=== PATIENT | female | born 1940 | race Caucasian/White ===

== ENCOUNTER → 2017-06-11 | Outpatient (CLI) | payer MEDICARE, OTHER ==
[~2017-06-11] MED LIST: /AMLO25TA; AMLO10TAB; ASPI325T; CALCCHW12; CARD2TAB; COZA100T; HYDR25TA6; METO25TA2; OXYB5TAB4; POTA10CA; PRIL20CA; TOPR25TA; [UNRECOGNIZED DRUG - CODE]
--- NOTE | 2017-06-11 14:50 | REPMRS ---
Patient History The patient states she had a clinical breast exam in February 2017. Patient is postmenopausal. Family history of breast cancer in mother at age 53, breast cancer in maternal cousin at age 50, and breast cancer in maternal cousin at age 70. Benign lumpectomy of the right breast, 1961. Digital Mammo Screening Bilat: June 11, 2017 - Exam #: [id number] Bilateral CC and MLO view(s) were taken. Technologist: Shani Walker, Technologist Prior study comparison: June 05, 2016, bilateral digital mammo screening bilat performed at [facility]. June 04, 2015, bilateral digital mammo screening bilat performed at [facility]. June 02, 2014, bilateral bilat screen digital mammo, performed at [facility] ([facility]). May 27, 2013, bilateral bilat screen digital mammo, performed at [facility] ([facility]). April 25, 2012, bilateral bilat screen digital mammo, performed at [facility] ([facility]). April 11, 2011, bilateral screening mammogram, performed at [facility] ([facility]). April 04, 2010, bilateral screening mammogram, performed at [facility] ([facility]). FINDINGS: There are scattered fibroglandular densities. There has been no change in the appearance of the mammogram from the prior studies. There is a mild amount of residual fibroglandular tissue which is fairly symmetric. There is no interval development of dominant mass, architectural distortion, or clustered microcalcification suggestive of malignancy. Stable 6mm well defined nodule in the right breast at 11o'clock in periareolar region without change from all priors and further back to '08 exxam consistent with benign finding. There are scattered, small, benign calcifications of doubtful clinical significance. There are benign arterial calcifications noted. No significant changes when compared with prior studies. ASSESSMENT: BI-RADS/ACR category 2 mammogram. Benign finding(s). Recommendation Routine screening mammogram in 1 year (for women over age 40). This mammogram was interpreted with the aid of an FDA-approved computer-aided dectection system. A. Negative x-ray reports should not delay biopsy if a dominant or clinically suspicious mass is present. B. Four to eight percent of cancers are not identified by mammography. C. Adenosis and dense breast may obscure an underlying neoplasm. Electronically Signed By: Andrews Morelos MD 06/11/17 [id number]
== END ==
LOC: M RAD 09:14
PROVIDERS: ATTEND Family Medicine
DX: Z12.31 Encounter for screening mammogram for malignant neoplasm of breast (principal)

== ENCOUNTER → 2017-08-02 | Outpatient (REF) | payer MEDICARE, OTHER | LOC: M LAB REF 16:37 | PROVIDERS: ATTEND Nurse Practitioner Women's Health | DX: N32.81 Overactive bladder (principal); Z79.899 Other long term (current) drug therapy ==

== ENCOUNTER → 2018-06-21 | Outpatient (CLI) | payer MEDICARE, OTHER | LOC: M RAD 10:26 | DX: Z12.31 Encounter for screening mammogram for malignant neoplasm of breast (principal) | CPT/HCPCS: 77067 ==

== ENCOUNTER 2021-04-04 12:10 | Inpatient (IN) | payer MEDICARE, OTHER ==
[~2021-04-04] VITALS: Ht 157.5 cm; Wt 61.2 kg
[~2021-04-04 12:10] MED LIST changes: -/AMLO25TA; +METO-1; +NORV2TAB; -TOPR25TA
[2021-04-04] MEDS ORDERED: BENZONATATE 100 MG CAP PO PRN (14:10)
[2021-04-04] MEDS ORDERED: BISACODYL 10 MG SUPP PR PRN (14:10)
[2021-04-04] MEDS: REMEDY PHYTOPLEX Z-GUARD PASTE 113GM TUBE (FROM STOREROOM PRODUCT) TOP SCH ×2 (16:00→20:39)
[2021-04-04 17:10] VITALS: BP 171/79
[2021-04-04] MEDS ORDERED: POTA1TAB14 PO (17:57)
[2021-04-04] MEDS ORDERED: B-COTAB10 PO (17:57)
[2021-04-04] MEDS ORDERED: GABA-283 PO (17:57)
[2021-04-04] MEDS ORDERED: TUSSLIQ PO (17:57)
[2021-04-04] MEDS ORDERED: SENN1TAB94 PO (17:57)
[2021-04-04] MEDS ORDERED: OXYC-517 PO (17:57)
[2021-04-04] MEDS ORDERED: CETI-24 PO (17:57)
[2021-04-04] MEDS ORDERED: FLUTISP NARES (17:57)
[2021-04-04] MEDS ORDERED: D-10TAB3 PO (17:57)
[2021-04-04] MEDS ORDERED: SYST1SOL4 OU (17:57)
[2021-04-04] MEDS ORDERED: AMLO1TAB25 PO (17:57)
[2021-04-04] MEDS ORDERED: CENT1TAB PO (17:57)
[2021-04-04] MEDS ORDERED: FISH1000 PO (17:57)
[2021-04-04] MEDS ORDERED: LOSA100T50 PO (17:57)
[2021-04-04] MEDS ORDERED: MAGN400T3 PO (17:57)
[2021-04-04] MEDS ORDERED: DITR5TAB PO (17:57)
[2021-04-04] MEDS ORDERED: CALA180T PO (17:57)
[2021-04-04] MEDS ORDERED: ASPI81TA27 PO (17:57)
[2021-04-04] MEDS ORDERED: HYDR-3490 PO (17:57)
[2021-04-04] MEDS ORDERED: OMEP-218 PO (17:57)
[2021-04-04] MEDS ORDERED: HYDR5LIQ2 PO (17:59)
[2021-04-04] MEDS: GABAPENTIN 400MG CAP PO SCH ×2 (18:21→20:38)
[2021-04-04] MEDS: ACETAMINOPHEN 500 MG TAB PO SCH ×2 (18:22→21:58)
[2021-04-04 20:15] VITALS: BP 123/60
[2021-04-04] MEDS: POLYVINYL ALCOHOL OPHTH SOLN 15 ML(LIQUITEARS) OU SCH (20:36)
[2021-04-04] MEDS: FLUTICASONE PROP 0.05% NASAL SPRAY 16 GM (FLONASE) NARES SCH (20:36)
[2021-04-04] MEDS: ASPIRIN 81MG ENTERIC TABLET PO SCH (20:37)
[2021-04-04] MEDS: VERAPAMIL 180MG EXTENDED RELEASE TABLET PO SCH (20:37)
[2021-04-04] MEDS: DOCUSATE SODIUM 100MG CAPSULE PO SCH (20:38)
[2021-04-04] MEDS: SENNA 8.6 MG TAB (SENOKOT) PO SCH (21:00)
[2021-04-04] MEDS: oxyCODONE 5MG TAB PO PRN (21:59)
[2021-04-05 05:00] VITALS: BP 137/63
[2021-04-05 07:09] LABS: BASO # 0.1 10^3/uL (0.0-0.2); BASO % 0.6 % (0.0-1.0); EOS # 0.5 10^3/uL (0.0-0.5); EOS % 4.3 % (0.0-3.0); HEMATOCRIT 29.9 % (36.0-47.0); HEMOGLOBIN 9.9 g/dl (12.0-15.5); LYMPH # 0.8 10^3/uL (1.5-5.0); LYMPH % 6.1 % (24.0-44.0); MEAN CORPUSCULAR HEMOGLOBIN 33.4 pg (27.0-33.0); MEAN CORPUSCULAR HGB CONC 33.1 g/dl (32.0-36.5); MONO # 1.1 10^3/uL (0.0-0.8); MONO % 8.4 % (2.0-8.0); NEUTROPHILS # 10.1 10^3/uL (1.5-8.5); NEUTROPHILS % 79.9 % (36.0-66.0); PLATELET COUNT, AUTOMATED 317 10^3/uL (150-450); RED BLOOD COUNT 2.96 10^6/uL (4.00-5.40); WHITE BLOOD COUNT 12.7 10^3/uL (4.0-10.0)
[2021-04-05 07:39] LABS: ALBUMIN 2.5 GM/DL (3.2-5.2); ALT/SGPT 8 U/L (12-78); BILIRUBIN,TOTAL 0.5 MG/DL (0.2-1.0); BLOOD UREA NITROGEN 12 MG/DL (7-18); CALCIUM LEVEL 8.6 MG/DL (8.8-10.2); CARBON DIOXIDE LEVEL 30 MEQ/L (21-32); CHLORIDE LEVEL 106 MEQ/L (98-107); CREATININE FOR GFR 0.51 MG/DL (0.55-1.30); GLOMERULAR FILTRATION RATE > 60.0 (>32); GLUCOSE, FASTING 85 MG/DL (70-100); POTASSIUM SERUM 3.6 MEQ/L (3.5-5.1); SODIUM LEVEL 143 MEQ/L (136-145); TOTAL PROTEIN 5.9 GM/DL (6.4-8.2)
[2021-04-05] MEDS: VITAMIN D 1,000 INTERNATIONAL UNITS TABLET PO SCH (08:26)
[2021-04-05] MEDS: MULTIVITAMINS/MINERALS THERAP 1 TAB PO SCH (08:26)
[2021-04-05] MEDS: VITAMIN B COMPLEX/VIT C CAP PO SCH (08:26)
[2021-04-05] MEDS: DOCUSATE SODIUM 100MG CAPSULE PO SCH ×2 (08:26→20:56)
[2021-04-05] MEDS: OMEPRAZOLE 20 MG CAP PO SCH (08:26)
[2021-04-05] MEDS: CETIRIZINE (ZyrTEC) 10 MG TAB PO SCH (08:27)
[2021-04-05] MEDS: ASPIRIN 81MG ENTERIC TABLET PO SCH ×2 (08:27→20:55)
[2021-04-05] MEDS: POTASSIUM CHLORIDE 10 MEQ SR TABLET PO SCH (08:27)
[2021-04-05] MEDS: GABAPENTIN 400MG CAP PO SCH ×3 (08:27→20:56)
[2021-04-05] MEDS: MAGNESIUM OXIDE 400MG TAB (MAG-OX) PO SCH (08:27)
[2021-04-05] MEDS: ACETAMINOPHEN 500 MG TAB PO SCH ×3 (08:28→20:56)
[2021-04-05] MEDS: FLUTICASONE PROP 0.05% NASAL SPRAY 16 GM (FLONASE) NARES SCH ×2 (08:29→20:57)
[2021-04-05] MEDS: POLYVINYL ALCOHOL OPHTH SOLN 15 ML(LIQUITEARS) OU SCH ×3 (08:29→20:57)
[2021-04-05] MEDS: REMEDY PHYTOPLEX Z-GUARD PASTE 113GM TUBE (FROM STOREROOM PRODUCT) TOP SCH ×3 (08:30→20:57)
[2021-04-05] MEDS: LOSARTAN 50MG TABLET PO SCH (08:30)
[2021-04-05] MEDS: oxyCODONE 5MG TAB PO PRN ×3 (08:37→22:19)
[2021-04-05] MEDS ORDERED: oxyBUTYnin *DITROPAN XL* 5 MG TABCR PO SCH (09:00)
--- NOTE | 2021-04-05 10:43 | HPEPDOC ---
[employer] Note DATE OF ADMISSION: 04-04-21 DATE OF SERVICE: 04-05-21 TIME OF ADMISSION: Please refer to physician's admission order. SOURCE OF ADMISSION INFORMATION: [facility] record and patient CHIEF COMPLAINT: right TKR HISTORY OF PRESENT ILLNESS: 80F pmh CAD, sick sinus syndrome with PM, MAXIMILIANO on CPAP, HTN, HLD, Anxiety, Cervical stenosis, dysphagia due to esophageal strictures, overactive bladder, PVD, primary right knee OA who [facility] for TKR in setting of OA and frequent dislocations. She was evaluated by card iology and cleared for surgery which was performed by Dr. Almonte on 04-01-21. She had post-op LE swelling and pain for which Doppler study was performed on 04-01-21 showing no DVT. Additionally she pain with post-op anemia with a Hgb of 9.8 on 04/04/21 and leukocytosis with wbc of 17.6 with low grade temp. Therapy evaluated her and found her to have considerable mobility and ADL impairments and she was deemed medically appropriate for discharge to ARU on 04-04-21. REVIEW OF SYSTEMS: The following is a completed review of systems and has been reviewed. Review of systems otherwise unremarkable. PAIN: Patient self reports right knee pain and shoulder pain EYES: No recent vision changes. EARS, NOSE, & THROAT: +dysphagia (mild, chronic) CARDIOVASCULAR: Denies chest pain or palpitations PULMONARY: Denies shortness of breath GASTROINTESTINAL: Denies constipation/diarrhea GENITOURINARY: denies dysuria MUSCULOSKELETAL: s/p right knee TKR NEUROLOGICAL:denies paresthesias HEMATOLOGICAL: +anemia SKIN: right knee incision PSYCHIATRIC: Unremarkable All other review of systems found to be negative. PAST MEDICAL HISTORY: as per HPI PAST SURGICAL HISTORY: Breast cyst excision, D&C x2, esophageal dilatation, RTC repair, bilat THR, colonoscopy ALLERGIES: Please see below. MEDICATIONS: Please see below. FAMILY HISTORY: Cancer, suicide, malignant hyperthermia SOCIAL HISTORY: No smoking/etoh/illicit drugs DIET: 2 g low sodium, fluid restrict PHYSICAL EXAMINATION: VITAL SIGNS: Please see below. GENERAL: Pleasant and cooperative. No acute distress. HEENT: PERRL. Extraocular movements intact. Clear conjunctiva CARDIOVASCULAR: Regular rate and rhythm. No murmurs, rubs, or gallops LUNGS: Clear to auscultation bilaterally. No wheezes. No rhonchi ABDOMEN: Soft, nontender, nondistended. Positive bowel sounds. Normal active bowel sounds NEUROLOGICAL: Alert and oriented times three. Cranial nerves II through XII grossly intact. Sensation grossly intact all 4 limbs EXTREMITIES: 5\5 strength bilateral upper extremities. 5\5 strength right ankle DF/EHL, PF >3/5 hip flexion (limited due to recent surgery) . 5/5 strength in left lower extremity. SKIN: knee incision with dressing, mild incision erythema and swelling -no sacral wounds or pressure ulcers noted underneath brace +Renata's bilat LABORATORY DATA: Please see below. IMAGING: Imaging documentation personally reviewed by record FUNCTIONAL STATUS: Premorbid: Modified Independent with all activities of daily life as well as mobility On Admission: Contact guard-Min assist for bed mobility, dressing, toileting GOALS: Mod-I for bed mobility, functional transfers, toileting, ambulation, dressing, bathing ASSESSMENT:80-year-old F with past medical history of CAD with sick sinus syndrome s/p PM, HTN, primary right knee OA who presents status post right TKR PLAN: 1. Rehab- PT/OT advance mobility and ADLs, strengthen/stretch/maintain ROM all 4 limbs 2. Ortho- s/p right TKR on 04-01-21, WBAT with knee immobilizer (should remain on at all times per ortho recs, however should be removed daily for skin checks), will monitor wbc/esr/crp, on ASa 81mg BID for DVT ppx -f/u Dr. Almonte -hx of cervical stenosis, monitor for neck pain, bladder/bowel symptoms, or worsening weakness. 3. Cardiac- hx of CAD on ASA and statin -sick sinus syndrome with dual chamber PM c/u verapamil -CHF on hydrochlorothiazide (+potassium supplements), fluid restrict, daily weights -HTN- c/u Losartan and norvasc -medicine consulted to assist in overall management 4. Resp- hx of MAXIMILIANO on cpap -monitor for infection, incentive spirometer 5. 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 GI ppx- prilosec 7. DVT ppx- on ASA 81mg BID 8. - OAB on oxybutynin 9. Pain- tylneol, oxycodone, gabapentin 10. Dispo TBD POST ADMISSION PHYSICIAN EVALUATION: Medical and functional status: Description of medical status, medical assessment: As above. Rehabilitation diagnosis and current and prior cold morbid medical conditions as above. Risk of complications and plans to mitigate them as above. Description of functional status current status is as above. Prior status as above. Status compared to preadmission: There are no clinically significant differences between the patient's current status and the information described on the preadmission screening document. Treatment plan anticipated: Treatment plan is as described above. Required disciplines including physical therapy, occupational therapy, others as noted above Intensity of services: 3 hours a day, 6 days a week. Special considerations: There are no specific special or safety considerations that would likely preclude immediate implementation of an intensive rehabilita tion program or subsequently influence the plan of care ATTESTATION: Considering all the information above, it is my best judgment that this patient requires intensive rehabilitation therapy as described above and an inpatient hospital environment due to the complexity of nursing, medical, and rehabilitation needs required by the patient. Furthermore, this patient can reasonably be expected to participate in an benefit from an inpatient rehabilitation stay with an interdisciplinary team approach to the delivery of rehabilitation care under the direction and supervision of rehabilitation physi johan PROGNOSIS: good ESTIMATED LENGTH OF STAY:10-12 days. PROJECTED DISCHARGE DESTINATION: Home with family support and any durable medical equipment required to increase functional safety and mobility. TIME SPENT COUNSELING AND COORDINATING INITIAL CARE: Greater than 70 minutes. Vital Signs Vital Sign - Last 24 Hours 04/04/21 04/04/21 04/04/21 04/04/21 17:10 20:15 20:37 21:59 Temp 97.9 97.9 Pulse 72 67 67 Resp 20 18 18 B/P (MAP) 171/79 (109) 123/60 (81) 123/60 Pulse Ox 96 97 O2 Delivery Room Air Room Air 04/04/21 04/05/21 04/05/21 04/05/21 22:29 05:00 08:29 08:37 Temp 97.8 97.8 Pulse 63 68 63 Resp 18 18 18 B/P (MAP) 137/63 (87) 135/60 137/63 Pulse Ox 97 O2 Delivery Room Air Room Air 04/05/21 09:10 Resp 18 O2 Delivery Room Air Laboratory Data CBC/BMP Laboratory Tests 04/05/21 06:40 Labs 24H Laboratory Tests 2 04/05/21 06:40: Immature Granulocyte % (Auto) 0.7, Neutrophils (%) (Auto) 79.9H, Lymphocytes (%) (Auto) 6.1L, Monocytes (%) (Auto) 8.4H, Eosinophils (%) (Auto) 4.3H, Basophils (%) (Auto) 0.6, Neutrophils # (Auto) 10.1H, Lymphocytes # (Auto) 0.8L, Monocytes # (Auto) 1.1H, Eosinophils # (Auto) 0.5, Basophils # (Auto) 0.1, Nucleated Red Blood Cells % (auto) 0.0, Anion Gap 7L, Glomerular Filtration Rate > 60.0, Calcium Level 8.6L, Total Bilirubin 0.5, Aspartate Amino Transf (AST/SGOT) 11, Alanine Aminotransferase (ALT/SGPT) 8L, Alkaline Phosphatase 97, Total Protein 5.9L, Albumin 2.5L, Albumin/Globulin Ratio 0.7L Home Medications Scheduled Amlodipine Besylate (Amlodipine Besylate) 10 Mg Tablet, 10 MG PO DAILY, (Reported) Aspirin (Aspirin EC) 81 Mg Tablet.dr, 81 MG PO BID, (Reported) Cetirizine HCl (Cetirizine HCl) 10 Mg Tablet, 10 MG PO DAILY, (Reported) Cholecalciferol (Vitamin D3) (Vitamin D3) 25 Mcg Tablet, 25 MCG PO DAILY, (Reported) Fluticasone Propionate (Fluticasone Propionate) 16 Gm Tasley.susp, 2 SPRAY NARES BID, (Reported) Gabapentin (Gabapentin) 400 Mg Capsule, 400 MG PO TID, (Reported) Hydrochlorothiazide (Hydrochlorothiazide) 25 Mg Tablet, 25 MG PO DAILY, (Reported) Losartan Potassium (Losartan Potassium) 100 Mg Tablet, 100 MG PO DAILY, (Reported) Magnesium Oxide (Magnesium Oxide) 400 Mg Tablet, 800 MG PO DAILY, (Reported) Multivit-Min/FA/Lycopen/Lutein (Centrum Silver Tablet) 1 Each Tablet, 1 TAB PO DAILY, (Reported) [place]-3 Fatty Acids/Fish Oil (Fish Oil 1,000 mg Capsule) 1 Each Capsule, 2,000 MG PO BID, (Reported) Omeprazole (Omeprazole) 20 Mg Capsule.dr, 20 MG PO DAILY, (Reported) Oxybutynin Chloride (Ditropan Xl) 5 Mg Tab.er.24, 5 MG PO DAILY, (Reported) Potassium Chloride (Potassium Chloride) 20 Meq Tablet.er, 40 MEQ PO DAILY, (Reported) Sennosides/Docusate Sodium (Senna Plus 8.6-50 mg Tablet) 1 Each Tablet, 2 TAB PO QHS, (Reported) Verapamil HCl (Calan Sr) 180 Mg Tablet.er, 180 MG PO QHS, (Reported) Vitamin B Complex/Folic Acid (B-Complex Tablet) 0.4 Mg Tablet, 1 TAB PO DAILY, (Reported) Scheduled PRN Hydrocodone/Chlorphen P-Stirex (Hydrocodone-Chlorphen ER Susp) 115 Ml Maria R.er.12h, 5 ML PO DAILY PRN for COUGH, (Reported) Oxycodone HCl (Oxycodone HCl) 5 Mg Tablet, 5 MG PO Q4H PRN for PAIN, (Reported) Propylene Glycol/Peg 400/Pf (Systane 0.3-0.4% Eye Drop) 1 Each Droperette, 1 MATTY P OU BID PRN for DRY EYES, (Reported) Allergies Coded Allergies: Sulfa (Sulfonamide Antibiotics) (Unverified Allergy, Unknown, 04/04/21) clarithromycin (Unverified Allergy, Unknown, 04/04/21) etodolac (Unverified Allergy, Unknown, 04/04/21) trimethoprim (Unverified Allergy, Unknown, 04/04/21) A-FIB/CHADSVASC A-FIB History Current/History of A-Fib/PAF?: No Current PO Anticoag Therapy: No SORIN CHILEL MD April 05, 2021 10:43
[2021-04-05 14:00] VITALS: BP 160/65
--- NOTE | 2021-04-05 17:40 | REP ---
INDICATION: immobility s/p TKR COMPARISON: None. TECHNIQUE: Kaur scale and color Doppler evaluation bilateral lower extremities using linear high frequency transducer. FINDINGS: Ultrasound examination of the right and left lower extremity deep venous structures from the common femoral vein to the popliteal vein demonstrates normal compressibility flow and wave patterns in response to respiration and augmentation. There is no evidence for deep venous thrombosis. Complex Lopez's cyst in the right popliteal fossa measures 4.1 x 2.3 x 3.0 cm. IMPRESSION: No evidence for deep venous thrombosis. Lopez's cyst in the right popliteal fossa <Electronically signed by Nilo Gaffney > 04/05/21 [id number]
[2021-04-05 20:01] VITALS: BP 128/68
[2021-04-05] MEDS: VERAPAMIL 180MG EXTENDED RELEASE TABLET PO SCH (20:55)
[2021-04-05] MEDS: SENNA 8.6 MG TAB (SENOKOT) PO SCH (20:56)
[2021-04-06 05:58] VITALS: BP 147/69
[2021-04-06 06:57] LABS: BASO # 0.1 10^3/uL (0.0-0.2); BASO % 0.7 % (0.0-1.0); EOS # 0.6 10^3/uL (0.0-0.5); EOS % 5.6 % (0.0-3.0); HEMATOCRIT 28.5 % (36.0-47.0); HEMOGLOBIN 9.2 g/dl (12.0-15.5); LYMPH # 0.9 10^3/uL (1.5-5.0); LYMPH % 8.6 % (24.0-44.0); MEAN CORPUSCULAR HEMOGLOBIN 32.4 pg (27.0-33.0); MEAN CORPUSCULAR HGB CONC 32.3 g/dl (32.0-36.5); MEAN CORPUSCULAR VOLUME 100.4 fl (80.0-96.0); MONO % 9.2 % (2.0-8.0); NEUTROPHILS # 7.9 10^3/uL (1.5-8.5); PLATELET COUNT, AUTOMATED 333 10^3/uL (150-450); RED BLOOD COUNT 2.84 10^6/uL (4.00-5.40); WHITE BLOOD COUNT 10.5 10^3/uL (4.0-10.0)
[2021-04-06 09:00] VITALS: BP 137/67
[2021-04-06] MEDS: ASPIRIN 81MG ENTERIC TABLET PO SCH ×2 (09:04→20:21)
[2021-04-06] MEDS: DOCUSATE SODIUM 100MG CAPSULE PO SCH ×2 (09:04→20:21)
[2021-04-06] MEDS: MULTIVITAMINS/MINERALS THERAP 1 TAB PO SCH (09:04)
[2021-04-06] MEDS: OMEPRAZOLE 20 MG CAP PO SCH (09:05)
[2021-04-06] MEDS: GABAPENTIN 400MG CAP PO SCH ×3 (09:05→20:21)
[2021-04-06] MEDS: ACETAMINOPHEN 500 MG TAB PO SCH ×3 (09:05→20:21)
[2021-04-06] MEDS: LOSARTAN 50MG TABLET PO SCH (09:05)
[2021-04-06] MEDS: CETIRIZINE (ZyrTEC) 10 MG TAB PO SCH (09:06)
[2021-04-06] MEDS: FLUTICASONE PROP 0.05% NASAL SPRAY 16 GM (FLONASE) NARES SCH ×2 (09:06→20:24)
[2021-04-06] MEDS: POLYVINYL ALCOHOL OPHTH SOLN 15 ML(LIQUITEARS) OU SCH ×3 (09:06→20:24)
[2021-04-06] MEDS: VITAMIN B COMPLEX/VIT C CAP PO SCH (09:06)
[2021-04-06] MEDS: MAGNESIUM OXIDE 400MG TAB (MAG-OX) PO SCH (09:06)
[2021-04-06] MEDS: VITAMIN D 1,000 INTERNATIONAL UNITS TABLET PO SCH (09:06)
[2021-04-06] MEDS: POTASSIUM CHLORIDE 10 MEQ SR TABLET PO SCH (09:06)
[2021-04-06] MEDS: REMEDY PHYTOPLEX Z-GUARD PASTE 113GM TUBE (FROM STOREROOM PRODUCT) TOP SCH ×3 (09:07→20:25)
--- NOTE | 2021-04-06 10:37 | IPNPDOC ---
PM&R Progress Note DATE OF SERVICE: April 06, 2021 High Scaler Progress Note Subjective: Patient reporting she is apprehensive about going home on her own and does not want to have to rely on her daughter to help her. REVIEW OF SYSTEMS: The following is a completed review of systems and has been reviewed. Review of systems otherwise unremarkable. PAIN: Patient self reports right knee pain and shoulder pain EYES: No recent vision changes. EARS, NOSE, & THROAT: +dysphagia (mild, chronic) CARDIOVASCULAR: Denies chest pain or palpitations PULMONARY: Denies shortness of breath GASTROINTESTINAL: Denies constipation/diarrhea GENITOURINARY: denies dysuria MUSCULOSKELETAL: s/p right knee TKR NEUROLOGICAL:denies paresthesias HEMATOLOGICAL: +anemia SKIN: right knee incision PSYCHIATRIC: Unremarkable All other review of systems found to be negative. PHYSICAL EXAMINATION: VITAL SIGNS: Please see below. GENERAL: Pleasant and cooperative. No acute distress. HEENT: PERRL. Extraocular movements intact. Clear conjunctiva CARDIOVASCULAR: Regular rate and rhythm. No murmurs, rubs, or gallops LUNGS: Clear to auscultation bilaterally. No wheezes. No rhonchi ABDOMEN: Soft, nontender, nondistended. Positive bowel sounds. Normal active bowel sounds NEUROLOGICAL: Alert and oriented times three. Cranial nerves II through XII grossly intact. Sensation grossly intact all 4 limbs EXTREMITIES: 5\5 strength bilateral upper extremities. 5\5 strength right ankle DF/EHL, PF >3/5 hip flexion (limited due to recent surgery) . 5/5 strength in left lower extremity. SKIN: knee incision with dressing, mild parth incision erythema and swelling (improved today) -no sacral wounds or pressure ulcers noted underneath brace ASSESSMENT:80-year-old F with past medical history of CAD with sick sinus syndrome s/p PM, HTN, primary right knee OA who presents status post right TKR PLAN: 1. Rehab- PT/OT advance mobility and ADLs, strengthen/stretch/maintain ROM all 4 limbs 2. Ortho- s/p right TKR on 04-01-21, WBAT with knee immobilizer (should remain on at all times per ortho recs and no AROm or PROM until seen by ortho, however should be removed daily for skin checks), will monitor wbc/esr/crp, on ASa 81mg BID for DVT ppx -f/u Dr. Kopko -hx of cervical stenosis, monitor for neck pain, bladder/bowel symptoms, or worsening weakness. 3. Cardiac- hx of CAD on ASA and statin -sick sinus syndrome with dual chamber PM c/u verapamil -CHF on hydrochlorothiazide (+potassium supplements), fluid restrict, daily weights -HTN- c/u Losartan and norvasc -medicine consulted to assist in overall management 4. Resp- hx of MAXIMILIANO on cpap -monitor for infection, incentive spirometer 5. 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 GI ppx- prilosec 7. DVT ppx- on ASA 81mg BID -Doppler negative for DVT, + right bakers cyst 8. - OAB on oxybutynin, patient retaining and requiring IC, will d/c oxybutynin and see if she is able to void 9. Pain- tylneol, oxycodone, gabapentin 10. Dispo TBD Allergies Coded Allergies: Sulfa (Sulfonamide Antibiotics) (Unverified Allergy, Unknown, 04/04/21) clarithromycin (Unverified Allergy, Unknown, 04/04/21) etodolac (Unverified Allergy, Unknown, 04/04/21) trimethoprim (Unverified Allergy, Unknown, 04/04/21) Vital Signs Vital Signs Date Time Temp Pulse Resp B/P (MAP) Pulse Ox O2 Delivery O2 Flow Rate FiO2 04/06/21 09:05 137/67 04/06/21 09:05 67 04/06/21 09:00 18 99 Room Air 04/06/21 05:58 97.8 Laboratory Data CBC/BMP Laboratory Tests 04/06/21 06:23 Labs 24H Laboratory Tests 2 04/06/21 06:23: Immature Granulocyte % (Auto) 0.9, Neutrophils (%) (Auto) 75.0H, Lymphocytes (%) (Auto) 8.6L, Monocytes (%) (Auto) 9.2H, Eosinophils (%) (Auto) 5.6H, Basophils (%) (Auto) 0.7, Neutrophils # (Auto) 7.9, Lymphocytes # (Auto) 0.9L, Monocytes # (Auto) 1.0H, Eosinophils # (Auto) 0.6H, Basophils # (Auto) 0.1, Nucleated Red Blood Cells % (auto) 0.0, C-Reactive Protein, Quantitative 9.23H Current Medications Current Medications Current Medications Medications (Trade) Dose Ordered Sig/Callie Route PRN Reason Start Time Stop Time Status Last Admin Dose Admin Acetaminophen (Tylenol Tab) 1,000 mg TID PO 04/04/21 16:00 04/06/21 09:05 Amlodipine Besylate (Norvasc) 10 mg DAILY PO 04/05/21 09:00 04/06/21 09:05 Artificial Tears (Akwa Tears) 2 drop TID OU 04/04/21 21:00 04/06/21 09:06 Aspirin (Ecotrin) 81 mg BID PO 04/04/21 21:00 04/06/21 09:04 Benzonatate (Tessalon Perles) 100 mg TIDP PRN PO COUGH 04/04/21 14:10 Bisacodyl (Dulcolax Suppository) 10 mg DAILYPRN PRN [place] CONSTIPATION 04/04/21 14:10 Cetirizine HCl (ZyrTEC) 10 mg DAILY PO 04/05/21 09:00 04/06/21 09:06 Docusate Sodium (Colace) 100 mg BID PO 04/04/21 21:00 04/06/21 09:04 Fluticasone Propionate (Flonase 0.05% Nasal Jadwin) 1 spray BID NARES 04/04/21 21:00 04/06/21 09:06 Gabapentin (Neurontin) 400 mg TID PO 04/04/21 16:00 04/06/21 09:05 Home Med (Med Rec Complete!) ASDIRECTED XX 04/04/21 18:20 04/04/21 18:21 DC Hydrochlorothiazide (Hydrodiuril) 25 mg DAILY PO 04/05/21 09:00 04/06/21 09:06 Losartan Potassium (Cozaar) 100 mg DAILY PO 04/05/21 09:00 04/06/21 09:05 Magnesium Oxide (Mag-Ox) 800 mg DAILY PO 04/05/21 09:00 04/06/21 09:06 Multivitamins (Theragram-M) 1 tab DAILY PO 04/05/21 09:00 04/06/21 09:04 Omeprazole (PriLOSEC) 40 mg DAILY PO 04/05/21 09:00 04/06/21 09:05 Oxybutynin Chloride (Ditropan Xl) 5 mg DAILY PO 04/05/21 09:00 04/06/21 09:17 DC 04/05/21 08:27 Oxycodone HCl (Roxicodone, Oxyir) 5 mg Q4HP PRN PO PAIN 04/04/21 21:30 04/05/21 22:19 Polyethylene Glycol (Miralax) 1 pkt DAILY PRN PO CONSTIPATION 04/04/21 14:10 Potassium Chloride (Micro-K Extencaps) 40 meq DAILY PO 04/05/21 09:00 04/06/21 09:06 Senna (Senokot) 1 tab QHS PO 04/04/21 21:00 04/05/21 20:56 Verapamil HCl (Calan Sr) 180 mg QHS PO 04/04/21 21:00 04/05/21 20:55 Vitamin B Complex/ Vitamin C (Therapeutic B Complex w/C) 1 cap DAILY PO 04/05/21 09:00 04/06/21 09:06 Vitamin D (Vitamin D) 1,000 units QAM PO 04/05/21 09:00 04/06/21 09:06 SORIN CHILEL MD April 06, 2021 10:37
[2021-04-06] MEDS: oxyCODONE 5MG TAB PO PRN ×2 (13:39→20:21)
[2021-04-06 14:00] VITALS: BP 112/86
[2021-04-06 20:00] VITALS: BP 129/58
[2021-04-06] MEDS: SENNA 8.6 MG TAB (SENOKOT) PO SCH (20:21)
[2021-04-06] MEDS: VERAPAMIL 180MG EXTENDED RELEASE TABLET PO SCH (20:22)
[2021-04-07 05:13] VITALS: BP 161/74
[2021-04-07] MEDS: oxyCODONE 5MG TAB PO PRN ×3 (06:27→20:10)
[2021-04-07] MEDS: OMEPRAZOLE 20 MG CAP PO SCH (07:20)
[2021-04-07] MEDS: POTASSIUM CHLORIDE 10 MEQ SR TABLET PO SCH (07:21)
[2021-04-07] MEDS: DOCUSATE SODIUM 100MG CAPSULE PO SCH ×2 (07:21→20:09)
[2021-04-07] MEDS: MULTIVITAMINS/MINERALS THERAP 1 TAB PO SCH (07:21)
[2021-04-07] MEDS: ACETAMINOPHEN 500 MG TAB PO SCH ×3 (07:22→20:11)
[2021-04-07] MEDS: LOSARTAN 50MG TABLET PO SCH (07:22)
[2021-04-07] MEDS: VITAMIN B COMPLEX/VIT C CAP PO SCH (07:23)
[2021-04-07] MEDS: CETIRIZINE (ZyrTEC) 10 MG TAB PO SCH (07:23)
[2021-04-07] MEDS: MAGNESIUM OXIDE 400MG TAB (MAG-OX) PO SCH (07:23)
[2021-04-07] MEDS: GABAPENTIN 400MG CAP PO SCH ×3 (07:23→20:09)
[2021-04-07] MEDS: VITAMIN D 1,000 INTERNATIONAL UNITS TABLET PO SCH (07:23)
[2021-04-07] MEDS: POLYVINYL ALCOHOL OPHTH SOLN 15 ML(LIQUITEARS) OU SCH ×3 (07:23→20:11)
[2021-04-07] MEDS: ASPIRIN 81MG ENTERIC TABLET PO SCH ×2 (07:23→20:09)
[2021-04-07] MEDS: REMEDY PHYTOPLEX Z-GUARD PASTE 113GM TUBE (FROM STOREROOM PRODUCT) TOP SCH ×3 (07:23→20:11)
[2021-04-07] MEDS: FLUTICASONE PROP 0.05% NASAL SPRAY 16 GM (FLONASE) NARES SCH ×2 (07:23→20:11)
--- NOTE | 2021-04-07 09:47 | IPNPDOC ---
PM&R Progress Note DATE OF SERVICE: April 07, 2021 [employer]olstery [employer] Progress Note Subjective: Patient reporting she had more ease climbing stairs and feels more confident that she will be able to go home from ARU. REVIEW OF SYSTEMS: The following is a completed review of systems and has been reviewed. Review of systems otherwise unremarkable. PAIN: Patient self reports right knee pain and shoulder pain EYES: No recent vision changes. EARS, NOSE, & THROAT: +dysphagia (mild, chronic) CARDIOVASCULAR: Denies chest pain or palpitations PULMONARY: Denies shortness of breath GASTROINTESTINAL: Denies constipation/diarrhea GENITOURINARY: denies dysuria MUSCULOSKELETAL: s/p right knee TKR NEUROLOGICAL:denies paresthesias HEMATOLOGICAL: +anemia SKIN: right knee incision PSYCHIATRIC: Unremarkable All other review of systems found to be negative. PHYSICAL EXAMINATION: VITAL SIGNS: Please see below. GENERAL: Pleasant and cooperative. No acute distress. HEENT: PERRL. Extraocular movements intact. Clear conjunctiva CARDIOVASCULAR: Regular rate and rhythm. No murmurs, rubs, or gallops LUNGS: Clear to auscultation bilaterally. No wheezes. No rhonchi ABDOMEN: Soft, nontender, nondistended. Positive bowel sounds. Normal active bowel sounds NEUROLOGICAL: Alert and oriented times three. Cranial nerves II through XII grossly intact. Sensation grossly intact all 4 limbs EXTREMITIES: 5\5 strength bilateral upper extremities. 5\5 strength right ankle DF/EHL, PF >3/5 hip flexion (limited due to recent surgery) . 5/5 strength in left lower extremity. SKIN: knee incision with dressing, mild parth incision erythema and swelling (c/u to improve)) -no sacral wounds or pressure ulcers noted underneath brace ASSESSMENT:80-year-old F with past medical history of CAD with sick sinus syndrome s/p PM, HTN, primary right knee OA who presents status post right TKR PLAN: 1. Rehab- PT/OT advance mobility and ADLs, strengthen/stretch/maintain ROM all 4 limbs 2. Ortho- s/p right TKR on 04-01-21, WBAT with knee immobilizer (should remain on at all times per ortho recs and no AROm or PROM until seen by ortho, however should be removed daily for skin checks), c/u monitor wbc/crp, on ASa 81mg BID for DVT ppx -f/u Dr. Kopko -hx of cervical stenosis, monitor for neck pain, bladder/bowel symptoms, or worsening weakness. 3. Cardiac- hx of CAD on ASA and statin -sick sinus syndrome with dual chamber PM c/u verapamil -CHF on hydrochlorothiazide (+potassium supplements), fluid restrict, daily weights -HTN- c/u Losartan and norvasc -medicine consulted to assist in overall management 4. Resp- hx of MAXIMILIANO on cpap -monitor for infection, incentive spirometer 5. ENT- hx of dysphagia in setting of esophageal strictures, monitor diet on A RU, patient able to self regulate, consider UNDERWRITING CLERKS SUPERVISOR eval if necessary 6. GI ppx- prilosec 7. DVT ppx- on ASA 81mg BID -Doppler negative for DVT, + right bakers cyst 8. - OAB on oxybutynin at home, patient was retaining and requiring IC, d/c'd oxybutynin and voiding better 9. Pain- tylneol, oxycodone, gabapentin 10. Dispo TBD Allergies Coded Allergies: Sulfa (Sulfonamide Antibiotics) (Unverified Allergy, Unknown, 04/04/21) clarithromycin (Unverified Allergy, Unknown, 04/04/21) etodolac (Unverified Allergy, Unknown, 04/04/21) trimethoprim (Unverified Allergy, Unknown, 04/04/21) Vital Signs Vital Signs Date Time Temp Pulse Resp B/P (MAP) Pulse Ox O2 Delivery O2 Flow Rate FiO2 04/07/21 07:22 161/74 04/07/21 07:21 66 04/07/21 07:00 18 Room Air 04/07/21 05:13 98.8 98 Current Medications Current Medications Current Medications Medications (Trade) Dose Ordered Sig/Callie Route PRN Reason Start Time Stop Time Status Last Admin Dose Admin Acetaminophen (Tylenol Tab) 1,000 mg TID PO 04/04/21 16:00 04/07/21 07:22 Amlodipine Besylate (Norvasc) 10 mg DAILY PO 04/05/21 09:00 04/07/21 07:21 Artificial Tears (Akwa Tears) 2 drop TID OU 04/04/21 21:00 04/07/21 07:23 Aspirin (Ecotrin) 81 mg BID PO 04/04/21 21:00 04/07/21 07:23 Benzonatate (Tessalon Perles) 100 mg TIDP PRN PO COUGH 04/04/21 14:10 Bisacodyl (Dulcolax Suppository) 10 mg DAILYPRN PRN [place] CONSTIPATION 04/04/21 14:10 Cetirizine HCl (ZyrTEC) 10 mg DAILY PO 04/05/21 09:00 04/07/21 07:23 Docusate Sodium (Colace) 100 mg BID PO 04/04/21 21:00 04/07/21 07:21 Fluticasone Propionate (Flonase 0.05% Nasal [place]) 1 spray BID NARES 04/04/21 21:00 04/07/21 07:23 Gabapentin (Neurontin) 400 mg TID PO 04/04/21 16:00 04/07/21 07:23 Home Med (Med Rec Complete!) ASDIRECTED XX 04/04/21 18:20 04/04/21 18:21 DC Hydrochlorothiazide (Hydrodiuril) 25 mg DAILY PO 04/05/21 09:00 04/07/21 07:23 Losartan Potassium (Cozaar) 100 mg DAILY PO 04/05/21 09:00 04/07/21 07:22 Magnesium Oxide (Mag-Ox) 800 mg DAILY PO 04/05/21 09:00 04/07/21 07:23 Multivitamins (Theragram-M) 1 tab DAILY PO 04/05/21 09:00 04/07/21 07:21 Omeprazole (PriLOSEC) 40 mg DAILY PO 04/05/21 09:00 04/07/21 07:20 Oxybutynin Chloride (Ditropan Xl) 5 mg DAILY PO 04/05/21 09:00 04/06/21 09:17 DC 04/05/21 08:27 Oxycodone HCl (Roxicodone, Oxyir) 5 mg Q4HP PRN PO PAIN 04/04/21 21:30 04/07/21 06:27 Polyethylene Glycol (Miralax) 1 pkt DAILY PRN PO CONSTIPATION 04/04/21 14:10 Potassium Chloride (Micro-K Extencaps) 40 meq DAILY PO 04/05/21 09:00 04/07/21 07:21 Senna (Senokot) 1 tab QHS PO 04/04/21 21:00 04/06/21 20:21 Verapamil HCl (Calan Sr) 180 mg QHS PO 04/04/21 21:00 04/06/21 20:22 Vitamin B Complex/ Vitamin C (Therapeutic B Complex w/C) 1 cap DAILY PO 04/05/21 09:00 04/07/21 07:23 Vitamin D (Vitamin D) 1,000 units QAM PO 04/05/21 09:00 04/07/21 07:23 SORIN CHILEL MD April 07, 2021 09:47
[2021-04-07 14:00] VITALS: BP 143/70
[2021-04-07] MEDS: SALIVA SUBSTITUTE(MOUTHKOTE) BTL MT SCH ×2 (15:12→20:11)
[2021-04-07 20:00] VITALS: BP 140/65
[2021-04-07] MEDS: SENNA 8.6 MG TAB (SENOKOT) PO SCH (20:09)
[2021-04-07] MEDS: VERAPAMIL 180MG EXTENDED RELEASE TABLET PO SCH (20:10)
[2021-04-08] MEDS: oxyCODONE 5MG TAB PO PRN (05:47)
[2021-04-08 06:00] VITALS: BP 141/67
[2021-04-08 07:04] LABS: BASO # 0.1 10^3/uL (0.0-0.2); BASO % 0.9 % (0.0-1.0); EOS # 0.7 10^3/uL (0.0-0.5); EOS % 6.9 % (0.0-3.0); HEMATOCRIT 29.9 % (36.0-47.0); HEMOGLOBIN 9.8 g/dl (12.0-15.5); LYMPH # 0.9 10^3/uL (1.5-5.0); LYMPH % 8.9 % (24.0-44.0); MEAN CORPUSCULAR HEMOGLOBIN 33.1 pg (27.0-33.0); MEAN CORPUSCULAR HGB CONC 32.8 g/dl (32.0-36.5); MONO % 9.4 % (2.0-8.0); NEUTROPHILS # 7.2 10^3/uL (1.5-8.5); PLATELET COUNT, AUTOMATED 375 10^3/uL (150-450); RED BLOOD COUNT 2.96 10^6/uL (4.00-5.40); WHITE BLOOD COUNT 10.1 10^3/uL (4.0-10.0)
[2021-04-08 07:25] LABS: BLOOD UREA NITROGEN 11 MG/DL (7-18); C REACTIVE PROTEIN QUANTITATIV 3.62 MG/DL (0.00-0.30); CALCIUM LEVEL 8.7 MG/DL (8.8-10.2); CARBON DIOXIDE LEVEL 29 MEQ/L (21-32); CHLORIDE LEVEL 106 MEQ/L (98-107); CREATININE FOR GFR 0.58 MG/DL (0.55-1.30); GLOMERULAR FILTRATION RATE > 60.0 (>32); GLUCOSE, FASTING 88 MG/DL (70-100); POTASSIUM SERUM 3.9 MEQ/L (3.5-5.1); SODIUM LEVEL 140 MEQ/L (136-145)
[2021-04-08] MEDS: POLYVINYL ALCOHOL OPHTH SOLN 15 ML(LIQUITEARS) OU SCH ×3 (08:56→20:49)
[2021-04-08] MEDS: SALIVA SUBSTITUTE(MOUTHKOTE) BTL MT SCH ×4 (08:56→20:49)
[2021-04-08] MEDS: MULTIVITAMINS/MINERALS THERAP 1 TAB PO SCH (08:56)
[2021-04-08] MEDS: CETIRIZINE (ZyrTEC) 10 MG TAB PO SCH (08:56)
[2021-04-08] MEDS: VITAMIN B COMPLEX/VIT C CAP PO SCH (08:56)
[2021-04-08] MEDS: ASPIRIN 81MG ENTERIC TABLET PO SCH ×2 (08:56→20:46)
[2021-04-08] MEDS: GABAPENTIN 400MG CAP PO SCH ×3 (08:57→20:47)
[2021-04-08] MEDS: POTASSIUM CHLORIDE 10 MEQ SR TABLET PO SCH (08:57)
[2021-04-08] MEDS: DOCUSATE SODIUM 100MG CAPSULE PO SCH ×2 (08:57→20:47)
[2021-04-08] MEDS: MAGNESIUM OXIDE 400MG TAB (MAG-OX) PO SCH (08:57)
[2021-04-08] MEDS: ACETAMINOPHEN 500 MG TAB PO SCH ×3 (08:57→20:48)
[2021-04-08] MEDS: VITAMIN D 1,000 INTERNATIONAL UNITS TABLET PO SCH (08:57)
[2021-04-08] MEDS: LOSARTAN 50MG TABLET PO SCH (08:58)
[2021-04-08] MEDS: FLUTICASONE PROP 0.05% NASAL SPRAY 16 GM (FLONASE) NARES SCH ×2 (08:58→20:48)
[2021-04-08] MEDS: OMEPRAZOLE 20 MG CAP PO SCH (08:58)
[2021-04-08] MEDS: REMEDY PHYTOPLEX Z-GUARD PASTE 113GM TUBE (FROM STOREROOM PRODUCT) TOP SCH ×3 (08:58→20:49)
[2021-04-08 14:00] VITALS: BP 142/64
--- NOTE | 2021-04-08 14:30 | IPNPDOC ---
PM&R Progress Note DATE OF SERVICE: April 08, 2021 Educational Speech Language Clinician Progress Note Subjective: Patient reporting her left knee feels ok, but that the strap that goes over the knee is irritating her skin. REVIEW OF SYSTEMS: The following is a completed review of systems and has been reviewed. Review of systems otherwise unremarkable. PAIN: Patient self reports right knee pain and shoulder pain EYES: No recent vision changes. EARS, NOSE, & THROAT: +dysphagia (mild, chronic) CARDIOVASCULAR: Denies chest pain or palpitations PULMONARY: Denies shortness of breath GASTROINTESTINAL: Denies constipation/diarrhea GENITOURINARY: denies dysuria MUSCULOSKELETAL: s/p right knee TKR NEUROLOGICAL:denies paresthesias HEMATOLOGICAL: +anemia SKIN: right knee incision PSYCHIATRIC: Unremarkable All other review of systems found to be negative. PHYSICAL EXAMINATION: VITAL SIGNS: Please see below. GENERAL: Pleasant and cooperative. No acute distress. HEENT: PERRL. Extraocular movements intact. Clear conjunctiva CARDIOVASCULAR: Regular rate and rhythm. No murmurs, rubs, or gallops LUNGS: Clear to auscultation bilaterally. No wheezes. No rhonchi ABDOMEN: Soft, nontender, nondistended. Positive bowel sounds. Normal active bowel sounds NEUROLOGICAL: Alert and oriented times three. Cranial nerves II through XII grossly intact. Sensation grossly intact all 4 limbs EXTREMITIES: 5\5 strength bilateral upper extremities. 5\5 strength right ankle DF/EHL, PF >3/5 hip flexion (limited due to recent surgery) . 5/5 strength in left lower extremity. SKIN: knee incision with dressing, mild parth incision erythema and swelling (c/u's to improve) -no sacral wounds or pressure ulcers noted underneath brace ASSESSMENT:80-year-old F with past medical history of CAD with sick sinus syndrome s/p PM, HTN, primary right knee OA who presents status post right TKR PLAN: 1. Rehab- PT/OT advance mobility and ADLs, strengthen/stretch/maintain ROM all 4 limbs 2. Ortho- s/p right TKR on 04-01-21, WBAT with knee immobilizer (should remain on at all times per ortho recs and no AROm or PROM until seen by ortho, however should be removed daily for skin checks), c/u monitor wbc/crp, on ASa 81mg BID for DVT ppx -f/u Dr. Kopko -hx of cervical stenosis, monitor for neck pain, bladder/bowel symptoms, or worsening weakness. 3. Cardiac- hx of CAD on ASA and statin -sick sinus syndrome with dual chamber PM c/u verapamil -CHF on hydrochlorothiazide (+potassium supplements), fluid restrict, daily weights -HTN- c/u Losartan and norvasc -medicine consulted to assist in overall management 4. Resp- hx of MAXIMILIANO on cpap -monitor for infection, incentive spirometer 5. ENT- hx of dysphagia in setting of esophageal strictures, monitor diet on ARU, patient able to self regulate, consider SCALLOP DREDGER eval if necessary 6. GI ppx- prilosec 7. DVT ppx- on ASA 81mg BID -Doppler negative for DVT, + right bakers cyst 8. - OAB on oxybutynin at home, patient was retaining and requiring IC, d/c'd oxybutynin and voiding better 9. Pain- tylneol, oxycodone, gabapentin 10. Leukocytosis- patient's right knee does not appear infected, CRP is trending down, will c/u to monitor 11. Dispo TBD Allergies Coded Allergies: Sulfa (Sulfonamide Antibiotics) (Unverified Allergy, Unknown, 04/04/21) clarithromycin (Unverified Allergy, Unknown, 04/04/21) etodolac (Unverified Allergy, Unknown, 04/04/21) trimethoprim (Unverified Allergy, Unknown, 04/04/21) Vital Signs Vital Signs Date Time Temp Pulse Resp B/P (MAP) Pulse Ox O2 Delivery O2 Flow Rate FiO2 04/08/21 14:00 97.6 68 18 142/64 (90) 98 Room Air Laboratory Data CBC/BMP Laboratory Tests 04/08/21 06:45 Labs 24H Laboratory Tests 2 04/08/21 06:45: Immature Granulocyte % (Auto) 2.9, Neutrophils (%) (Auto) 71.0H, Lymphocytes (%) (Auto) 8.9L, Monocytes (%) (Auto) 9.4H, Eosinophils (%) (Auto) 6.9H, Basophils (%) (Auto) 0.9, Neutrophils # (Auto) 7.2, Lymphocytes # (Auto) 0.9L, Monocytes # (Auto) 1.0H, Eosinophils # (Auto) 0.7H, Basophils # (Auto) 0.1, Nucleated Red Blood Cells % (auto) 0.0, Anion Gap 5L, Glomerular Filtration Rate > 60.0, Calcium Level 8.7L, C-Reactive Protein, Quantitative 3.62H Current Medications Current Medications Current Medications Medications (Trade) Dose Ordered Sig/Callie Route PRN Reason Start Time Stop Time Status Last Admin Dose Admin Acetaminophen (Tylenol Tab) 1,000 mg TID PO 04/04/21 16:00 04/08/21 08:57 Amlodipine Besylate (Norvasc) 10 mg DAILY PO 04/05/21 09:00 04/08/21 08:57 Artificial Tears (Akwa Tears) 2 drop TID OU 04/04/21 21:00 04/08/21 08:56 Aspirin (Ecotrin) 81 mg BID PO 04/04/21 21:00 04/08/21 08:56 Benzonatate (Tessalon Perles) 100 mg TIDP PRN PO COUGH 04/04/21 14:10 Bisacodyl (Dulcolax Suppository) 10 mg DAILYPRN PRN [place] CONSTIPATION 04/04/21 14:10 Cetirizine HCl (ZyrTEC) 10 mg DAILY PO 04/05/21 09:00 04/08/21 08:56 Docusate Sodium (Colace) 100 mg BID PO 04/04/21 21:00 04/08/21 08:57 Fluticasone Propionate (Flonase 0.05% Nasal [place]) 1 spray BID NARES 04/04/21 21:00 04/08/21 08:58 Gabapentin (Neurontin) 400 mg TID PO 04/04/21 16:00 04/08/21 08:57 Home Med (Med Rec Complete!) ASDIRECTED XX 04/04/21 18:20 04/04/21 18:21 DC Hydrochlorothiazide (Hydrodiuril) 25 mg DAILY PO 04/05/21 09:00 04/08/21 08:57 Losartan Potassium (Cozaar) 100 mg DAILY PO 04/05/21 09:00 04/08/21 08:58 Magnesium Oxide (Mag-Ox) 800 mg DAILY PO 04/05/21 09:00 04/08/21 08:57 Multivitamins (Theragram-M) 1 tab DAILY PO 04/05/21 09:00 04/08/21 08:56 Omeprazole (PriLOSEC) 40 mg DAILY PO 04/05/21 09:00 04/08/21 08:58 Oxybutynin Chloride (Ditropan Xl) 5 mg DAILY PO 04/05/21 09:00 04/06/21 09:17 DC 04/05/21 08:27 Oxycodone HCl (Roxicodone, Oxyir) 5 mg Q4HP PRN PO PAIN 04/04/21 21:30 04/08/21 05:47 Polyethylene Glycol (Miralax) 1 pkt DAILY PRN PO CONSTIPATION 04/04/21 14:10 Potassium Chloride (Micro-K Extencaps) 40 meq DAILY PO 04/05/21 09:00 04/08/21 08:57 Saliva Substitute (Mouthkote) 1 sprays QID MT 04/07/21 17:00 04/08/21 08:56 Senna (Senokot) 1 tab QHS PO 04/04/21 21:00 04/07/21 20:09 Verapamil HCl (Calan Sr) 180 mg QHS PO 04/04/21 21:00 04/07/21 20:10 Vitamin B Complex/ Vitamin C (Therapeutic B Complex w/C) 1 cap DAILY PO 04/05/21 09:00 04/08/21 08:56 Vitamin D (Vitamin D) 1,000 units QAM PO 04/05/21 09:00 04/08/21 08:57 SORIN CHILEL MD April 08, 2021 14:30
[2021-04-08 20:15] VITALS: BP 135/65
[2021-04-08] MEDS: SENNA 8.6 MG TAB (SENOKOT) PO SCH (20:47)
[2021-04-08] MEDS: VERAPAMIL 180MG EXTENDED RELEASE TABLET PO SCH (20:47)
[2021-04-09 05:56] VITALS: BP 145/83
[2021-04-09] MEDS: POTASSIUM CHLORIDE 10 MEQ SR TABLET PO SCH (08:14)
[2021-04-09] MEDS: ASPIRIN 81MG ENTERIC TABLET PO SCH ×2 (08:14→20:37)
[2021-04-09] MEDS: OMEPRAZOLE 20 MG CAP PO SCH (08:14)
[2021-04-09] MEDS: MULTIVITAMINS/MINERALS THERAP 1 TAB PO SCH (08:14)
[2021-04-09] MEDS: VITAMIN D 1,000 INTERNATIONAL UNITS TABLET PO SCH (08:15)
[2021-04-09] MEDS: GABAPENTIN 400MG CAP PO SCH ×3 (08:15→20:37)
[2021-04-09] MEDS: MAGNESIUM OXIDE 400MG TAB (MAG-OX) PO SCH (08:15)
[2021-04-09] MEDS: ACETAMINOPHEN 500 MG TAB PO SCH ×3 (08:15→20:38)
[2021-04-09] MEDS: VITAMIN B COMPLEX/VIT C CAP PO SCH (08:17)
[2021-04-09] MEDS: oxyCODONE 5MG TAB PO PRN ×3 (08:17→22:53)
[2021-04-09] MEDS: CETIRIZINE (ZyrTEC) 10 MG TAB PO SCH (08:17)
[2021-04-09] MEDS: DOCUSATE SODIUM 100MG CAPSULE PO SCH ×2 (08:20→20:38)
[2021-04-09] MEDS: FLUTICASONE PROP 0.05% NASAL SPRAY 16 GM (FLONASE) NARES SCH ×2 (08:20→20:39)
[2021-04-09] MEDS: POLYVINYL ALCOHOL OPHTH SOLN 15 ML(LIQUITEARS) OU SCH ×3 (08:20→20:39)
[2021-04-09] MEDS: LOSARTAN 50MG TABLET PO SCH (08:21)
[2021-04-09] MEDS: SALIVA SUBSTITUTE(MOUTHKOTE) BTL MT SCH ×4 (08:22→20:41)
[2021-04-09] MEDS: REMEDY PHYTOPLEX Z-GUARD PASTE 113GM TUBE (FROM STOREROOM PRODUCT) TOP SCH ×3 (08:22→20:40)
[2021-04-09 14:00] VITALS: BP 160/71
[2021-04-09 20:15] VITALS: BP 154/70
[2021-04-09] MEDS: SENNA 8.6 MG TAB (SENOKOT) PO SCH (20:37)
[2021-04-09] MEDS: VERAPAMIL 180MG EXTENDED RELEASE TABLET PO SCH (20:38)
[2021-04-10 05:41] VITALS: BP 145/83
[2021-04-10] MEDS: ASPIRIN 81MG ENTERIC TABLET PO SCH ×2 (07:39→20:26)
[2021-04-10] MEDS: VITAMIN B COMPLEX/VIT C CAP PO SCH (07:39)
[2021-04-10] MEDS: VITAMIN D 1,000 INTERNATIONAL UNITS TABLET PO SCH (07:39)
[2021-04-10] MEDS: DOCUSATE SODIUM 100MG CAPSULE PO SCH ×2 (07:39→20:28)
[2021-04-10] MEDS: CETIRIZINE (ZyrTEC) 10 MG TAB PO SCH (07:39)
[2021-04-10] MEDS: POTASSIUM CHLORIDE 10 MEQ SR TABLET PO SCH (07:40)
[2021-04-10] MEDS: LOSARTAN 50MG TABLET PO SCH (07:40)
[2021-04-10] MEDS: GABAPENTIN 400MG CAP PO SCH ×3 (07:40→20:26)
[2021-04-10] MEDS: MAGNESIUM OXIDE 400MG TAB (MAG-OX) PO SCH (07:40)
[2021-04-10] MEDS: ACETAMINOPHEN 500 MG TAB PO SCH ×3 (07:41→20:28)
[2021-04-10] MEDS: MULTIVITAMINS/MINERALS THERAP 1 TAB PO SCH (07:41)
[2021-04-10] MEDS: OMEPRAZOLE 20 MG CAP PO SCH (07:41)
[2021-04-10] MEDS: SALIVA SUBSTITUTE(MOUTHKOTE) BTL MT SCH ×4 (07:41→20:29)
[2021-04-10] MEDS: POLYVINYL ALCOHOL OPHTH SOLN 15 ML(LIQUITEARS) OU SCH ×3 (07:42→20:31)
[2021-04-10] MEDS: REMEDY PHYTOPLEX Z-GUARD PASTE 113GM TUBE (FROM STOREROOM PRODUCT) TOP SCH ×3 (07:42→20:32)
[2021-04-10] MEDS: FLUTICASONE PROP 0.05% NASAL SPRAY 16 GM (FLONASE) NARES SCH ×2 (07:42→20:31)
[2021-04-10 08:30] VITALS: BP 160/75
[2021-04-10 14:00] VITALS: BP 121/61
[2021-04-10] MEDS: oxyCODONE 5MG TAB PO PRN (18:46)
[2021-04-10 20:00] VITALS: BP 134/63
[2021-04-10] MEDS: SENNA 8.6 MG TAB (SENOKOT) PO SCH (20:26)
[2021-04-10] MEDS: VERAPAMIL 180MG EXTENDED RELEASE TABLET PO SCH (20:26)
[2021-04-11 05:42] VITALS: BP 158/75
[2021-04-11] MEDS: REMEDY PHYTOPLEX Z-GUARD PASTE 113GM TUBE (FROM STOREROOM PRODUCT) TOP SCH ×3 (09:00→20:38)
[2021-04-11] MEDS: OMEPRAZOLE 20 MG CAP PO SCH (09:12)
[2021-04-11] MEDS: ACETAMINOPHEN 500 MG TAB PO SCH ×3 (09:12→20:35)
[2021-04-11] MEDS: DOCUSATE SODIUM 100MG CAPSULE PO SCH ×2 (09:13→20:34)
[2021-04-11] MEDS: CETIRIZINE (ZyrTEC) 10 MG TAB PO SCH (09:13)
[2021-04-11] MEDS: POTASSIUM CHLORIDE 10 MEQ SR TABLET PO SCH (09:13)
[2021-04-11] MEDS: MAGNESIUM OXIDE 400MG TAB (MAG-OX) PO SCH (09:13)
[2021-04-11] MEDS: MULTIVITAMINS/MINERALS THERAP 1 TAB PO SCH (09:13)
[2021-04-11] MEDS: VITAMIN D 1,000 INTERNATIONAL UNITS TABLET PO SCH (09:14)
[2021-04-11] MEDS: VITAMIN B COMPLEX/VIT C CAP PO SCH (09:14)
[2021-04-11] MEDS: GABAPENTIN 400MG CAP PO SCH ×3 (09:14→20:34)
[2021-04-11] MEDS: LOSARTAN 50MG TABLET PO SCH (09:14)
[2021-04-11] MEDS: ASPIRIN 81MG ENTERIC TABLET PO SCH ×2 (09:14→20:34)
[2021-04-11] MEDS: POLYVINYL ALCOHOL OPHTH SOLN 15 ML(LIQUITEARS) OU SCH ×3 (09:14→20:36)
[2021-04-11] MEDS: FLUTICASONE PROP 0.05% NASAL SPRAY 16 GM (FLONASE) NARES SCH ×2 (09:15→20:35)
[2021-04-11 09:17] LABS: BASO # 0.1 10^3/uL (0.0-0.2); BASO % 0.8 % (0.0-1.0); EOS # 0.4 10^3/uL (0.0-0.5); EOS % 3.3 % (0.0-3.0); HEMATOCRIT 33.4 % (36.0-47.0); HEMOGLOBIN 10.8 g/dl (12.0-15.5); LYMPH # 0.8 10^3/uL (1.5-5.0); LYMPH % 5.9 % (24.0-44.0); MEAN CORPUSCULAR HEMOGLOBIN 32.8 pg (27.0-33.0); MEAN CORPUSCULAR HGB CONC 32.3 g/dl (32.0-36.5); MEAN CORPUSCULAR VOLUME 101.5 fl (80.0-96.0); MONO # 0.7 10^3/uL (0.0-0.8); MONO % 4.9 % (2.0-8.0); NEUTROPHILS # 10.9 10^3/uL (1.5-8.5); NEUTROPHILS % 82.7 % (36.0-66.0); PLATELET COUNT, AUTOMATED 468 10^3/uL (150-450); RED BLOOD COUNT 3.29 10^6/uL (4.00-5.40); WHITE BLOOD COUNT 13.1 10^3/uL (4.0-10.0)
[2021-04-11] MEDS: oxyCODONE 5MG TAB PO PRN (09:17)
[2021-04-11] MEDS: SALIVA SUBSTITUTE(MOUTHKOTE) BTL MT SCH ×4 (09:18→20:35)
[2021-04-11 09:48] LABS: BLOOD UREA NITROGEN 14 MG/DL (7-18); CALCIUM LEVEL 8.8 MG/DL (8.8-10.2); CARBON DIOXIDE LEVEL 28 MEQ/L (21-32); CHLORIDE LEVEL 103 MEQ/L (98-107); CREATININE FOR GFR 0.71 MG/DL (0.55-1.30); GLOMERULAR FILTRATION RATE > 60.0 (>32); GLUCOSE, FASTING 112 MG/DL (70-100); POTASSIUM SERUM 3.6 MEQ/L (3.5-5.1); SODIUM LEVEL 140 MEQ/L (136-145)
[2021-04-11 14:00] VITALS: BP 129/64
[2021-04-11 20:00] VITALS: BP 149/67
[2021-04-11] MEDS: VERAPAMIL 180MG EXTENDED RELEASE TABLET PO SCH (20:34)
[2021-04-11] MEDS: SENNA 8.6 MG TAB (SENOKOT) PO SCH (20:34)
[2021-04-12 06:00] VITALS: BP 177/77
--- NOTE | 2021-04-12 08:52 | IPNPDOC ---
PM&R Progress Note DATE OF SERVICE: Apr 12, 2021 [employer] Progress Note Subjective: Patient reporting she has some tenderness along the right lateral upper segment of her right calf. REVIEW OF SYSTEMS: The following is a completed review of systems and has been reviewed. Review of systems otherwise unremarkable. PAIN: Patient self reports right knee pain and shoulder pain EYES: No recent vision changes. EARS, NOSE, & THROAT: +dysphagia (mild, chronic) CARDIOVASCULAR: Denies chest pain or palpitations PULMONARY: Denies shortness of breath GASTROINTESTINAL: Denies constipation/diarrhea GENITOURINARY: denies dysuria MUSCULOSKELETAL: s/p right knee TKR NEUROLOGICAL:denies paresthesias HEMATOLOGICAL: +anemia SKIN: right knee incision PSYCHIATRIC: Unremarkable All other review of systems found to be negative. PHYSICAL EXAMINATION: VITAL SIGNS: Please see below. GENERAL: Pleasant and cooperative. No acute distress. HEENT: PERRL. Extraocular movements intact. Clear conjunctiva CARDIOVASCULAR: Regular rate and rhythm. No murmurs, rubs, or gallops LUNGS: Clear to auscultation bilaterally. No wheezes. No rhonchi ABDOMEN: Soft, nontender, nondistended. Positive bowel sounds. Normal active bowel sounds NEUROLOGICAL: Alert and oriented times three. Cranial nerves II through XII grossly intact. Sensation grossly intact all 4 limbs EXTREMITIES: 5\5 strength bilateral upper extremities. 5\5 strength right ankle DF/EHL, PF >3/5 hip flexion (limited due to recent surgery) . 5/5 strength in left lower extremity. +mild TTP origin of peroneus longus muscle, pain exacerbated with ankle eversion (-) maddie's bilat SKIN: knee incision with dressing, no parth incision erythema and scant swelling -no sacral wounds or pressure ulcers noted underneath brace ASSESSMENT:80-year-old F with past medical history of CAD with sick sinus syndrome s/p PM, HTN, primary right knee OA who presents status post right TKR PLAN: 1. Rehab- PT/OT advance mobility and ADLs, strengthen/stretch/maintain ROM all 4 limbs 2. Ortho- s/p right TKR on 04-01-21, WBAT with knee immobilizer (should remain on at all times per ortho recs and no AROm or PROM until seen by ortho, however should be removed daily for skin checks), c/u monitor wbc/crp, on ASa 81mg BID for DVT ppx -f/u Dr. Almonte -hx of cervical stenosis, monitor for neck pain, bladder/bowel symptoms, or worsening weakness. 3. Cardiac- hx of CAD on ASA and statin -sick sinus syndrome with dual chamber PM c/u verapamil -CHF on hydrochlorothiazide (+potassium supplements), fluid restrict, daily weights -HTN- c/u Losartan and norvasc -medicine consulted to assist in overall management 4. Resp- hx of MAXIMILIANO on cpap -monitor for infection, incentive spirometer 5. ENT- hx of dysphagia in setting of esophageal strictures, monitor diet on ARU, patient able to self regulate, consider STRATEGIC PLANNER eval if necessary 6. GI ppx- prilosec 7. DVT ppx- on ASA 81mg BID -Doppler negative for DVT, + right bakers cyst 8. - OAB on oxybutynin at home, patient was retaining on admission and requiring IC, d/c'd oxybutynin and was voiding better, however restarted by hospitalist, will monitor for recurrence of retention 9. 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 Leukocytosis- patient's right knee does not appear infected, CRP is c/u to trend down, will c/u to monitor 11. Dispo TBD Allergies Coded Allergies: Sulfa (Sulfonamide Antibiotics) (Unverified Allergy, Unknown, 04/04/21) clarithromycin (Unverified Allergy, Unknown, 04/04/21) etodolac (Unverified Allergy, Unknown, 04/04/21) trimethoprim (Unverified Allergy, Unknown, 04/04/21) Vital Signs Vital Signs Date Time Temp Pulse Resp B/P (MAP) Pulse Ox O2 Delivery O2 Flow Rate FiO2 04/12/21 06:00 97.3 71 20 177/77 (110) 96 Room Air Laboratory Data CBC/BMP Laboratory Tests 04/11/21 09:08 Labs 24H Laboratory Tests 2 04/11/21 09:08: Immature Granulocyte % (Auto) 2.4, Neutrophils (%) (Auto) 82.7H, Lymphocytes (%) (Auto) 5.9L, Monocytes (%) (Auto) 4.9, Eosinophils (%) (Auto) 3.3H, Basophils (%) (Auto) 0.8, Neutrophils # (Auto) 10.9H, Lymphocytes # (Auto) 0.8L, Monocytes # (Auto) 0.7, Eosinophils # (Auto) 0.4, Basophils # (Auto) 0.1, Nucleated Red Blood Cells % (auto) 0.0, Anion Gap 9, Glomerular Filtration Rate > 60.0, Calcium Level 8.8 Current Medications Current Medications Current Medications Medications (Trade) Dose Ordered Sig/Callie Route PRN Reason Start Time Stop Time Status Last Admin Dose Admin Acetaminophen (Tylenol Tab) 1,000 mg TID PO 04/04/21 16:00 04/11/21 20:35 Amlodipine Besylate (Norvasc) 10 mg DAILY PO 04/05/21 09:00 04/11/21 09:13 Artificial Tears (Akwa Tears) 2 drop TID OU 04/04/21 21:00 04/11/21 20:36 Aspirin (Ecotrin) 81 mg BID PO 04/04/21 21:00 04/11/21 20:34 Benzonatate (Tessalon Perles) 100 mg TIDP PRN PO COUGH 04/04/21 14:10 Bisacodyl (Dulcolax Suppository) 10 mg DAILYPRN PRN [place] CONSTIPATION 04/04/21 14:10 Cetirizine HCl (ZyrTEC) 10 mg DAILY PO 04/05/21 09:00 04/11/21 09:13 Docusate Sodium (Colace) 100 mg BID PO 04/04/21 21:00 04/11/21 20:34 Fluticasone Propionate (Flonase 0.05% Nasal [place]) 1 spray BID NARES 04/04/21 21:00 04/11/21 20:35 Gabapentin (Neurontin) 400 mg TID PO 04/04/21 16:00 04/11/21 20:34 Home Med (Med Rec Complete!) ASDIRECTED XX 04/04/21 18:20 04/04/21 18:21 DC Hydrochlorothiazide (Hydrodiuril) 25 mg DAILY PO 04/05/21 09:00 04/11/21 09:14 Losartan Potassium (Cozaar) 100 mg DAILY PO 04/05/21 09:00 04/11/21 09:14 Magnesium Oxide (Mag-Ox) 800 mg DAILY PO 04/05/21 09:00 04/11/21 09:13 Multivitamins (Theragram-M) 1 tab DAILY PO 04/05/21 09:00 04/11/21 09:13 Omeprazole (PriLOSEC) 40 mg DAILY PO 04/05/21 09:00 04/11/21 09:12 Oxybutynin Chloride (Ditropan Xl) 5 mg DAILY PO 04/05/21 09:00 04/06/21 09:17 DC 04/05/21 08:27 Oxycodone HCl (Roxicodone, Oxyir) 5 mg Q4HP PRN PO PAIN 04/04/21 21:30 04/11/21 09:17 Polyethylene Glycol (Miralax) 1 pkt DAILY PRN PO CONSTIPATION 04/04/21 14:10 Potassium Chloride (Micro-K Extencaps) 40 meq DAILY PO 04/05/21 09:00 04/11/21 09:13 Saliva Substitute (Mouthkote) 1 sprays QID MT 04/07/21 17:00 04/11/21 20:35 Senna (Senokot) 1 tab QHS PO 04/04/21 21:00 04/11/21 20:34 Verapamil HCl (Calan Sr) 180 mg QHS PO 04/04/21 21:00 04/11/21 20:34 Vitamin B Complex/ Vitamin C (Therapeutic B Complex w/C) 1 cap DAILY PO 04/05/21 09:00 04/11/21 09:14 Vitamin D (Vitamin D) 1,000 units QAM PO 04/05/21 09:00 04/11/21 09:14 SORIN CHILEL MD Apr 12, 2021 08:52
[2021-04-12] MEDS: REMEDY PHYTOPLEX Z-GUARD PASTE 113GM TUBE (FROM STOREROOM PRODUCT) TOP SCH ×3 (09:00→20:51)
[2021-04-12] MEDS: SALIVA SUBSTITUTE(MOUTHKOTE) BTL MT SCH ×4 (09:00→20:50)
[2021-04-12] MEDS: DOCUSATE SODIUM 100MG CAPSULE PO SCH ×2 (09:00→20:50)
[2021-04-12] MEDS: VITAMIN D 1,000 INTERNATIONAL UNITS TABLET PO SCH (09:11)
[2021-04-12] MEDS: MULTIVITAMINS/MINERALS THERAP 1 TAB PO SCH (09:11)
[2021-04-12] MEDS: POTASSIUM CHLORIDE 10 MEQ SR TABLET PO SCH (09:11)
[2021-04-12] MEDS: GABAPENTIN 400MG CAP PO SCH ×3 (09:11→20:50)
[2021-04-12] MEDS: VITAMIN B COMPLEX/VIT C CAP PO SCH (09:12)
[2021-04-12] MEDS: ASPIRIN 81MG ENTERIC TABLET PO SCH ×2 (09:12→20:50)
[2021-04-12] MEDS: OMEPRAZOLE 20 MG CAP PO SCH (09:12)
[2021-04-12] MEDS: CETIRIZINE (ZyrTEC) 10 MG TAB PO SCH (09:12)
[2021-04-12] MEDS: MAGNESIUM OXIDE 400MG TAB (MAG-OX) PO SCH (09:12)
[2021-04-12] MEDS: ACETAMINOPHEN 500 MG TAB PO SCH ×3 (09:14→20:50)
[2021-04-12] MEDS: LOSARTAN 50MG TABLET PO SCH (09:14)
[2021-04-12] MEDS: oxyCODONE 5MG TAB PO PRN ×2 (09:15→22:53)
[2021-04-12] MEDS: FLUTICASONE PROP 0.05% NASAL SPRAY 16 GM (FLONASE) NARES SCH ×2 (09:16→20:50)
[2021-04-12] MEDS: POLYVINYL ALCOHOL OPHTH SOLN 15 ML(LIQUITEARS) OU SCH ×3 (09:16→20:50)
[2021-04-12 09:44] LABS: BASO # 0.1 10^3/uL (0.0-0.2); BASO % 0.8 % (0.0-1.0); EOS # 0.5 10^3/uL (0.0-0.5); EOS % 3.4 % (0.0-3.0); HEMATOCRIT 35.9 % (36.0-47.0); HEMOGLOBIN 11.6 g/dl (12.0-15.5); LYMPH # 0.8 10^3/uL (1.5-5.0); LYMPH % 6.1 % (24.0-44.0); MEAN CORPUSCULAR HEMOGLOBIN 32.8 pg (27.0-33.0); MEAN CORPUSCULAR HGB CONC 32.3 g/dl (32.0-36.5); MEAN CORPUSCULAR VOLUME 101.4 fl (80.0-96.0); MONO # 0.8 10^3/uL (0.0-0.8); MONO % 6.1 % (2.0-8.0); NEUTROPHILS # 10.8 10^3/uL (1.5-8.5); NEUTROPHILS % 81.5 % (36.0-66.0); PLATELET COUNT, AUTOMATED 596 10^3/uL (150-450); RED BLOOD COUNT 3.54 10^6/uL (4.00-5.40); WHITE BLOOD COUNT 13.3 10^3/uL (4.0-10.0)
[2021-04-12 10:02] LABS: BLOOD UREA NITROGEN 13 MG/DL (7-18); C REACTIVE PROTEIN QUANTITATIV 0.68 MG/DL (0.00-0.30); CALCIUM LEVEL 9.2 MG/DL (8.8-10.2); CARBON DIOXIDE LEVEL 27 MEQ/L (21-32); CHLORIDE LEVEL 103 MEQ/L (98-107); CREATININE FOR GFR 0.83 MG/DL (0.55-1.30); GLOMERULAR FILTRATION RATE > 60.0 (>32); GLUCOSE, FASTING 119 MG/DL (70-100); POTASSIUM SERUM 3.7 MEQ/L (3.5-5.1); SODIUM LEVEL 141 MEQ/L (136-145)
--- NOTE | 2021-04-12 13:01 | CR.PDOC ---
General Date of Consultation: Apr 12, 2021 Consultation Chief complaint: Ascended to [facility] as a transfer from [facility] for rehabilitation after her right total knee replacement History of present illness: Patient is an 80-year-old female who presented to [facility] acute rehabilitation unit for continued physical therapy and occupational therapy after she has received a right total knee replacement. Hospital service was consulted for medical co-management. Patient was recently admitted at [facility] in 03/31/21 for a total right knee replacement. Patient has received the surgery on 04/01/[address] Almonte. Patient was evaluated for lower extremity DVTs via ultrasound which was negative. Patient was ultimately transitioned to acute rehabilitation unit on 04/04/21. Patient denies any headache, nausea, vomiting, chest pain, shortness of breath, palpitations, abdominal pain, constipation, diarrhea, or urinary discomfort. She reports her appetite is fairly normal. Patient reports that she has been progressing with physical therapy and reports some achiness of her right knee. 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 Review of Systems: 10 point review of systems complete, all negative otherwise stated in HPI Physical exam: - Vitals: BP , HR , RR , Sat , Temp - General: Lying in bed, No acute distress, Speaking in full sentences, AAOx3 - HEENT: NC, AT, PERRLA, EOMI - CVS: RRR, +S1S2, - Murmurs / rubs / gallops - Lungs: Fair air entry bilaterally, Clear to auscultation, No appreciable wheezing / rales / rhonchi - Abdomen: Soft, Non-distended, Non-tender, + Bowel sounds x 4 - Extremities: + PPx4, No lower extremity edema, No calf tenderness - Neuro: No focal motor or sensory deficit - Skin: No visible rashes Labs: See below Imaging: See below EKG: See below Assessment and Plan: Total right knee replacement - Patient has received her procedure on 04/[address] Almonte at [facility] - Continue pain control as ordered - Continue with PT and OT as per acute rehabilitation unit Leukocytosis - Review of systems is negative for any source of infection - Patient is afebrile and hemodynamically stable - Inflammatory markers have been improving - No indication for antibiotics at this time Macrocytic anemia - Hg has remained stable - Will continue to monitor CAD - Denies any chest pain or palpitations - c/w ASA 81 SSS s/p PM () HTN - BP elevated this morning - c/w Amlodipine / HCTZ / Verapamil / Losartan PVD - c/w ASA 81 MAXIMILIANO on CPAP - c/w Home CPAP use while inpatient DLP - Will resume [place]-3 fatty acids Anxiety - Currently not on any medications Esophageal strictures s/p dilation; with some dysphagia - c/w Omeprazole - c/w Speech therapy; will follow their recommendations Overactive bladder - Will resume Oxybutynin Neuropathy - c/w Gabapentin Osteoarthritis / Cervical stenosis - c/w Tylenol PRN DVT prophylaxis - Will c/w TEDs/Sequentials Vital Signs/I&O Vital Signs Date Time Temp Pulse Resp B/P (MAP) Pulse Ox O2 Delivery O2 Flow Rate FiO2 04/12/21 10:00 18 04/12/21 09:14 89 175/79 04/12/21 06:00 97.3 96 Room Air I&O- Last 24 Hours up to 6 AM 04/12/21 06:00 Intake Total 320 ml Balance 320 ml Laboratory Data Labs 24H Laboratory Tests 2 04/12/21 09:16: Immature Granulocyte % (Auto) 2.1, Neutrophils (%) (Auto) 81.5H, Lymphocytes (%) (Auto) 6.1L, Monocytes (%) (Auto) 6.1, Eosinophils (%) (Auto) 3.4H, Basophils (%) (Auto) 0.8, Neutrophils # (Auto) 10.8H, Lymphocytes # (Auto) 0.8L, Monocytes # (Auto) 0.8, Eosinophils # (Auto) 0.5, Basophils # (Auto) 0.1, Nucleated Red Blood Cells % (auto) 0.0, Anion Gap 11, Glomerular Filtration Rate > 60.0, Calcium Level 9.2, C-Reactive Protein, Quantitative 0.68H CBC/BMP Laboratory Tests 04/12/21 09:16 Allergies Coded Allergies: Sulfa (Sulfonamide Antibiotics) (Unverified Allergy, Unknown, 04/04/21) clarithromycin (Unverified Allergy, Unknown, 04/04/21) etodolac (Unverified Allergy, Unknown, 04/04/21) trimethoprim (Unverified Allergy, Unknown, 04/04/21) Home Medications Scheduled Amlodipine Besylate (Amlodipine Besylate) 10 Mg Tablet, 10 MG PO DAILY, (Reported) Aspirin (Aspirin EC) 81 Mg Tablet.dr, 81 MG PO BID, (Reported) Cetirizine HCl (Cetirizine HCl) 10 Mg Tablet, 10 MG PO DAILY, (Reported) Cholecalciferol (Vitamin D3) (Vitamin D3) 25 Mcg Tablet, 25 MCG PO DAILY, (Reported) Fluticasone Propionate (Fluticasone Propionate) 16 Gm [place].susp, 2 SPRAY NARES BID, (Reported) Gabapentin (Gabapentin) 400 Mg Capsule, 400 MG PO TID, (Reported) Hydrochlorothiazide (Hydrochlorothiazide) 25 Mg Tablet, 25 MG PO DAILY, (Reported) Losartan Potassium (Losartan Potassium) 100 Mg Tablet, 100 MG PO DAILY, (Reported) Magnesium Oxide (Magnesium Oxide) 400 Mg Tablet, 800 MG PO DAILY, (Reported) Multivit-Min/FA/Lycopen/Lutein (Centrum Silver Tablet) 1 Each Tablet, 1 TAB PO DAILY, (Reported) [place]-3 Fatty Acids/Fish Oil (Fish Oil 1,000 mg Capsule) 1 Each Capsule, 2,000 MG PO BID, (Reported) Omeprazole (Omeprazole) 20 Mg Capsule.dr, 20 MG PO DAILY, (Reported) Oxybutynin Chloride (Ditropan Xl) 5 Mg Tab.er.24, 5 MG PO DAILY, (Reported) Potassium Chloride (Potassium Chloride) 20 Meq Tablet.er, 40 MEQ PO DAILY, (Reported) Sennosides/Docusate Sodium (Senna Plus 8.6-50 mg Tablet) 1 Each Tablet, 2 TAB PO QHS, (Reported) Verapamil HCl (Calan Sr) 180 Mg Tablet.er, 180 MG PO QHS, (Reported) Vitamin B Complex/Folic Acid (B-Complex Tablet) 0.4 Mg Tablet, 1 TAB PO DAILY, (Reported) Scheduled PRN Hydrocodone/Chlorphen P-Stirex (Hydrocodone-Chlorphen ER Susp) 115 Ml Maria R.er.12h, 5 ML PO DAILY PRN for COUGH, (Reported) Oxycodone HCl (Oxycodone HCl) 5 Mg Tablet, 5 MG PO Q4H PRN for PAIN, (Reported) Propylene Glycol/Peg 400/Pf (Systane 0.3-0.4% Eye Drop) 1 Each Droperette, 1 DROP OU BID PRN for DRY EYES, (Reported) CARYL DE LA CRUZ MD Apr 12, 2021 13:01
[2021-04-12 14:00] VITALS: BP 146/67
[2021-04-12] MEDS: OMEGA-3 1000MG CAPSULE PO SCH ×2 (15:05→20:50)
[2021-04-12] MEDS: oxyBUTYnin *DITROPAN XL* 5 MG TABCR PO SCH (15:05)
[2021-04-12] MEDS: LIDOCAINE 5% (LIDODERM) PATCH TD SCH (15:05)
[2021-04-12 20:00] VITALS: BP 162/76
[2021-04-12] MEDS: VERAPAMIL 180MG EXTENDED RELEASE TABLET PO SCH (20:49)
[2021-04-12] MEDS: SENNA 8.6 MG TAB (SENOKOT) PO SCH (20:50)
[2021-04-12] MEDS: **NOTE PATIENT COMMENT** MISC XX SCH (20:51)
[2021-04-13 06:00] VITALS: BP 160/82
[2021-04-13 07:47] LABS: BASO # 0.1 10^3/uL (0.0-0.2); BASO % 0.8 % (0.0-1.0); EOS # 0.5 10^3/uL (0.0-0.5); EOS % 4.7 % (0.0-3.0); HEMATOCRIT 32.6 % (36.0-47.0); HEMOGLOBIN 10.5 g/dl (12.0-15.5); LYMPH # 0.8 10^3/uL (1.5-5.0); LYMPH % 8.1 % (24.0-44.0); MEAN CORPUSCULAR HEMOGLOBIN 32.4 pg (27.0-33.0); MEAN CORPUSCULAR HGB CONC 32.2 g/dl (32.0-36.5); MEAN CORPUSCULAR VOLUME 100.6 fl (80.0-96.0); MONO # 0.7 10^3/uL (0.0-0.8); NEUTROPHILS # 7.5 10^3/uL (1.5-8.5); NEUTROPHILS % 77.6 % (36.0-66.0); RED BLOOD COUNT 3.24 10^6/uL (4.00-5.40); WHITE BLOOD COUNT 9.7 10^3/uL (4.0-10.0)
[2021-04-13 08:04] LABS: BLOOD UREA NITROGEN 15 MG/DL (7-18); C REACTIVE PROTEIN QUANTITATIV 0.46 MG/DL (0.00-0.30); CALCIUM LEVEL 9.1 MG/DL (8.8-10.2); CARBON DIOXIDE LEVEL 29 MEQ/L (21-32); CHLORIDE LEVEL 105 MEQ/L (98-107); CREATININE FOR GFR 0.56 MG/DL (0.55-1.30); GLOMERULAR FILTRATION RATE > 60.0 (>32); GLUCOSE, FASTING 89 MG/DL (70-100); POTASSIUM SERUM 3.6 MEQ/L (3.5-5.1); SODIUM LEVEL 140 MEQ/L (136-145)
[2021-04-13 08:05] LABS: PLATELET COUNT, AUTOMATED 465 10^3/uL (150-450)
[2021-04-13] MEDS: LIDOCAINE 5% (LIDODERM) PATCH TD SCH (08:55)
[2021-04-13] MEDS: GABAPENTIN 400MG CAP PO SCH ×3 (08:55→20:17)
[2021-04-13] MEDS: ASPIRIN 81MG ENTERIC TABLET PO SCH ×2 (08:56→20:17)
[2021-04-13] MEDS: DOCUSATE SODIUM 100MG CAPSULE PO SCH ×2 (08:56→20:18)
[2021-04-13] MEDS: OMEPRAZOLE 20 MG CAP PO SCH (08:56)
[2021-04-13] MEDS: POTASSIUM CHLORIDE 10 MEQ SR TABLET PO SCH (08:57)
[2021-04-13] MEDS: CETIRIZINE (ZyrTEC) 10 MG TAB PO SCH (08:57)
[2021-04-13] MEDS: MAGNESIUM OXIDE 400MG TAB (MAG-OX) PO SCH (08:58)
[2021-04-13] MEDS: LOSARTAN 50MG TABLET PO SCH (08:58)
[2021-04-13] MEDS: MULTIVITAMINS/MINERALS THERAP 1 TAB PO SCH (08:58)
[2021-04-13] MEDS: VITAMIN D 1,000 INTERNATIONAL UNITS TABLET PO SCH (08:58)
[2021-04-13] MEDS: ACETAMINOPHEN 500 MG TAB PO SCH ×3 (08:59→20:17)
[2021-04-13] MEDS: REMEDY PHYTOPLEX Z-GUARD PASTE 113GM TUBE (FROM STOREROOM PRODUCT) TOP SCH ×3 (09:00→20:19)
[2021-04-13] MEDS: oxyBUTYnin *DITROPAN XL* 5 MG TABCR PO SCH (09:00)
[2021-04-13] MEDS ORDERED: VERAPAMIL 180MG EXTENDED RELEASE TABLET PO SCH (09:00)
[2021-04-13] MEDS: OMEGA-3 1000MG CAPSULE PO SCH ×2 (09:00→20:18)
[2021-04-13] MEDS: VITAMIN B COMPLEX/VIT C CAP PO SCH (09:00)
[2021-04-13] MEDS: oxyCODONE 5MG TAB PO PRN (09:02)
[2021-04-13] MEDS: FLUTICASONE PROP 0.05% NASAL SPRAY 16 GM (FLONASE) NARES SCH ×2 (09:07→20:18)
[2021-04-13] MEDS: SALIVA SUBSTITUTE(MOUTHKOTE) BTL MT SCH ×4 (09:07→20:18)
[2021-04-13] MEDS: POLYVINYL ALCOHOL OPHTH SOLN 15 ML(LIQUITEARS) OU SCH ×3 (09:07→20:18)
--- NOTE | 2021-04-13 09:46 | IPNPDOC ---
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 She states her left lateral dillon feels much better today with lidoderm patch. REVIEW OF SYSTEMS: The following is a completed review of systems and has been reviewed. Review of systems otherwise unremarkable. PAIN: Patient self reports right knee pain and shoulder pain EYES: No recent vision changes. EARS, NOSE, & THROAT: +dysphagia (mild, chronic) CARDIOVASCULAR: Denies chest pain or palpitations PULMONARY: Denies shortness of breath GASTROINTESTINAL: Denies constipation/diarrhea GENITOURINARY: denies dysuria MUSCULOSKELETAL: s/p right knee TKR NEUROLOGICAL:denies paresthesias HEMATOLOGICAL: +anemia SKIN: right knee incision PSYCHIATRIC: Unremarkable All other review of systems found to be negative. PHYSICAL EXAMINATION: VITAL SIGNS: Please see below. GENERAL: Pleasant and cooperative. No acute distress. HEENT: PERRL. Extraocular movements intact. Clear conjunctiva CARDIOVASCULAR: Regular rate and rhythm. No murmurs, rubs, or gallops LUNGS: Clear to auscultation bilaterally. No wheezes. No rhonchi ABDOMEN: Soft, nontender, nondistended. Positive bowel sounds. Normal active bowel sounds NEUROLOGICAL: Alert and oriented times three. Cranial nerves II through XII grossly intact. Sensation grossly intact all 4 limbs EXTREMITIES: 5\5 strength bilateral upper extremities. 5\5 strength right ankle DF/EHL, PF >3/5 hip flexion (limited due to recent surgery) . 5/5 strength in left lower extremity. +mild TTP origin of peroneus longus muscle, pain exacerbated with ankle eversion (-) maddie's bilat SKIN: knee incision with dressing, no parth incision erythema and scant swelling -no sacral wounds or pressure ulcers noted underneath brace ASSESSMENT:80-year-old F with past medical history of CAD with sick sinus syndrome s/p PM, HTN, primary right knee OA who presents status post right TKR PLAN: 1. Rehab- PT/OT advance mobility and ADLs, strengthen/stretch/maintain ROM all 4 limbs 2. Ortho- s/p right TKR on 04-01-21, WBAT with knee immobilizer (should remain on at all times per ortho recs and no AROm or PROM until seen by ortho, however should be removed daily for skin checks), c/u monitor wbc/crp, on ASa 81mg BID for DVT ppx -f/u Dr. Almonte, scheduled f/u for 04-20-21 at 11am so surgeon can determine further need for bracing -hx of cervical stenosis, monitor for neck pain, bladder/bowel symptoms, or worsening weakness. 3. Cardiac- hx of CAD on ASA and statin -sick sinus syndrome with dual chamber PM c/u verapamil -CHF on hydrochlorothiazide (+potassium supplements), fluid restrict, daily weights -HTN- c/u Losartan and norvasc (will increase verapamil daily dosing by 60mg as patient with elevated BPs and already on high dose ARB and amlodipine) -medicine consulted to assist in overall management 4. Resp- hx of MAXIMILIANO on cpap -monitor for infection, incentive spirometer 5. ENT- hx of dysphagia in setting of esophageal strictures, monitor diet on ARU, patient able to self regulate, consider [employer] eval if necessary 6. GI ppx- prilosec 7. DVT ppx- on ASA 81mg BID -Doppler negative for DVT, + right bakers cyst 8. - OAB on oxybutynin at home, patient was retaining on admission and requiring IC, d/c'd oxybutynin and was voiding better, however restarted by hospitalist, will monitor for recurrence of retention 9. 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 Leukocytosis- resolved, patient's right knee c/u to not appear infected, CRP is c/u to trend down, will c/u to monitor 11. Dispo TBD Allergies Coded Allergies: Sulfa (Sulfonamide Antibiotics) (Unverified Allergy, Unknown, 04/04/21) clarithromycin (Unverified Allergy, Unknown, 04/04/21) etodolac (Unverified Allergy, Unknown, 04/04/21) trimethoprim (Unverified Allergy, Unknown, 04/04/21) Vital Signs Vital Signs Date Time Temp Pulse Resp B/P (MAP) Pulse Ox O2 Delivery O2 Flow Rate FiO2 04/13/21 09:02 20 04/13/21 08:58 160/82 04/13/21 08:58 82 04/13/21 06:00 96.6 95 Room Air Laboratory Data CBC/BMP Laboratory Tests 04/13/21 07:24 Labs 24H Laboratory Tests 2 04/13/21 07:24: Immature Granulocyte % (Auto) 1.8, Neutrophils (%) (Auto) 77.6H, Lymphocytes (%) (Auto) 8.1L, Monocytes (%) (Auto) 7.0, Eosinophils (%) (Auto) 4.7H, Basophils (%) (Auto) 0.8, Neutrophils # (Auto) 7.5, Lymphocytes # (Auto) 0.8L, Monocytes # (Auto) 0.7, Eosinophils # (Auto) 0.5, Basophils # (Auto) 0.1, Nucleated Red Blood Cells % (auto) 0.0, Anion Gap 6L, Glomerular Filtration Rate > 60.0, Calcium Level 9.1, C-Reactive Protein, Quantitative 0.46H Current Medications Current Medications Current Medications Medications (Trade) Dose Ordered Sig/Callie Route PRN Reason Start Time Stop Time Status Last Admin Dose Admin Acetaminophen (Tylenol Tab) 1,000 mg TID PO 04/04/21 16:00 04/13/21 08:59 Amlodipine Besylate (Norvasc) 10 mg DAILY PO 04/05/21 09:00 04/13/21 08:58 Artificial Tears ([place] Tears) 2 drop TID OU 04/04/21 21:00 04/13/21 09:07 Aspirin (Ecotrin) 81 mg BID PO 04/04/21 21:00 04/13/21 08:56 Benzonatate (Tessalon Perles) 100 mg TIDP PRN PO COUGH 04/04/21 14:10 Bisacodyl (Dulcolax Suppository) 10 mg DAILYPRN PRN [place] CONSTIPATION 04/04/21 14:10 Cetirizine HCl (ZyrTEC) 10 mg DAILY PO 04/05/21 09:00 04/13/21 08:57 Docusate Sodium (Colace) 100 mg BID PO 04/04/21 21:00 04/13/21 08:56 Fish Oil ([place]-3 (1000mg)) 2 cap BID PO 04/12/21 09:00 04/13/21 09:00 Fluticasone Propionate (Flonase 0.05% Nasal [place]) 1 spray BID NARES 04/04/21 21:00 04/13/21 09:07 Gabapentin (Neurontin) 400 mg TID PO 04/04/21 16:00 04/13/21 08:55 Home Med (Med Rec Complete!) ASDIRECTED XX 04/04/21 18:20 04/04/21 18:21 DC Hydrochlorothiazide (Hydrodiuril) 25 mg DAILY PO 04/05/21 09:00 04/13/21 08:57 Lidocaine (Lidoderm Patch) 1 patch DAILY TD 04/12/21 12:45 04/13/21 08:55 Losartan Potassium (Cozaar) 100 mg DAILY PO 04/05/21 09:00 04/13/21 08:58 Magnesium Oxide (Mag-Ox) 800 mg DAILY PO 04/05/21 09:00 04/13/21 08:58 Multivitamins (Theragram-M) 1 tab DAILY PO 04/05/21 09:00 04/13/21 08:58 Non-Formulary Medication ( See Comment Field Below ) REMOVE LIDODERM PATCH DAILY@21 XX 04/12/21 21:00 04/12/21 20:51 Omeprazole (PriLOSEC) 40 mg DAILY PO 04/05/21 09:00 04/13/21 08:56 Oxybutynin Chloride (Ditropan Xl) 5 mg DAILY PO 04/05/21 09:00 04/06/21 09:17 DC 04/05/21 08:27 Oxybutynin Chloride (Ditropan Xl) 5 mg DAILY PO 04/12/21 09:00 04/13/21 09:00 Oxycodone HCl (Roxicodone, Oxyir) 5 mg Q4HP PRN PO PAIN 04/04/21 21:30 04/13/21 09:02 Polyethylene Glycol (Miralax) 1 pkt DAILY PRN PO CONSTIPATION 04/04/21 14:10 Potassium Chloride (Micro-K Extencaps) 40 meq DAILY PO 04/05/21 09:00 04/13/21 08:57 Saliva Substitute (Mouthkote) 1 sprays QID MT 04/07/21 17:00 04/13/21 09:07 Senna (Senokot) 1 tab QHS PO 04/04/21 21:00 04/12/21 20:50 Verapamil HCl (Calan Sr) 180 mg QHS PO 04/04/21 21:00 04/12/21 20:49 Vitamin B Complex/ Vitamin C (Therapeutic B Complex w/C) 1 cap DAILY PO 04/05/21 09:00 04/13/21 09:00 Vitamin D (Vitamin D) 1,000 units QAM PO 04/05/21 09:00 04/13/21 08:58 SORIN CHILEL MD Apr 13, 2021 09:46
[2021-04-13 14:00] VITALS: BP 133/67
[2021-04-13 20:09] VITALS: BP 158/72
[2021-04-13] MEDS: VERAPAMIL 120 MG SR TAB PO SCH (20:17)
[2021-04-13] MEDS: SENNA 8.6 MG TAB (SENOKOT) PO SCH (20:18)
[2021-04-13] MEDS: **NOTE PATIENT COMMENT** MISC XX SCH (20:19)
[2021-04-14 06:00] VITALS: BP 160/74
[2021-04-14] MEDS: REMEDY PHYTOPLEX Z-GUARD PASTE 113GM TUBE (FROM STOREROOM PRODUCT) TOP SCH ×3 (09:00→21:13)
[2021-04-14] MEDS: DOCUSATE SODIUM 100MG CAPSULE PO SCH ×2 (09:00→21:11)
[2021-04-14] MEDS: SALIVA SUBSTITUTE(MOUTHKOTE) BTL MT SCH ×4 (09:00→21:12)
[2021-04-14] MEDS: MAGNESIUM OXIDE 400MG TAB (MAG-OX) PO SCH (09:26)
[2021-04-14] MEDS: OMEGA-3 1000MG CAPSULE PO SCH ×2 (09:26→21:11)
[2021-04-14] MEDS: POTASSIUM CHLORIDE 10 MEQ SR TABLET PO SCH (09:27)
[2021-04-14] MEDS: ACETAMINOPHEN 500 MG TAB PO SCH ×3 (09:27→21:11)
[2021-04-14] MEDS: GABAPENTIN 400MG CAP PO SCH ×3 (09:27→21:11)
[2021-04-14] MEDS: MULTIVITAMINS/MINERALS THERAP 1 TAB PO SCH (09:27)
[2021-04-14] MEDS: oxyBUTYnin *DITROPAN XL* 5 MG TABCR PO SCH (09:27)
[2021-04-14] MEDS: VITAMIN D 1,000 INTERNATIONAL UNITS TABLET PO SCH (09:28)
[2021-04-14] MEDS: CETIRIZINE (ZyrTEC) 10 MG TAB PO SCH (09:28)
[2021-04-14] MEDS: VITAMIN B COMPLEX/VIT C CAP PO SCH (09:28)
[2021-04-14] MEDS: ASPIRIN 81MG ENTERIC TABLET PO SCH ×2 (09:28→21:10)
[2021-04-14] MEDS: OMEPRAZOLE 20 MG CAP PO SCH (09:28)
[2021-04-14] MEDS: oxyCODONE 5MG TAB PO PRN (09:31)
[2021-04-14] MEDS: LOSARTAN 50MG TABLET PO SCH (09:32)
[2021-04-14] MEDS: VERAPAMIL 120 MG SR TAB PO SCH ×2 (09:32→21:11)
[2021-04-14] MEDS: LIDOCAINE 5% (LIDODERM) PATCH TD SCH ×2 (09:33→14:14)
[2021-04-14] MEDS: FLUTICASONE PROP 0.05% NASAL SPRAY 16 GM (FLONASE) NARES SCH ×2 (09:33→21:12)
[2021-04-14] MEDS: POLYVINYL ALCOHOL OPHTH SOLN 15 ML(LIQUITEARS) OU SCH ×3 (09:33→21:12)
--- NOTE | 2021-04-14 12:29 | CR.PDOC ---
PM&R Consult Note Clerical Adviser Note Subjective: REVIEW OF SYSTEMS: The following is a completed review of systems and has been reviewed. Review of systems otherwise unremarkable. PAIN: Patient self reports right knee pain and shoulder pain EYES: No recent vision changes. EARS, NOSE, & THROAT: +dysphagia (mild, chronic) CARDIOVASCULAR: Denies chest pain or palpitations PULMONARY: Denies shortness of breath GASTROINTESTINAL: Denies constipation/diarrhea GENITOURINARY: denies dysuria MUSCULOSKELETAL: s/p right knee TKR NEUROLOGICAL:denies paresthesias HEMATOLOGICAL: +anemia SKIN: right knee incision PSYCHIATRIC: Unremarkable All other review of systems found to be negative. PHYSICAL EXAMINATION: VITAL SIGNS: Please see below. GENERAL: Pleasant and cooperative. No acute distress. HEENT: PERRL. Extraocular movements intact. Clear conjunctiva CARDIOVASCULAR: Regular rate and rhythm. No murmurs, rubs, or gallops LUNGS: Clear to auscultation bilaterally. No wheezes. No rhonchi ABDOMEN: Soft, nontender, nondistended. Positive bowel sounds. Normal active bowel sounds NEUROLOGICAL: Alert and oriented times three. Cranial nerves II through XII grossly intact. Sensation grossly intact all 4 limbs EXTREMITIES: 5\5 strength bilateral upper extremities. 5\5 strength right ankle DF/EHL, PF >3/5 hip flexion (limited due to recent surgery) . 5/5 strength in left lower extremity. +mild TTP origin of peroneus longus muscle, pain exacerbated with ankle eversion (-) maddie's bilat SKIN: knee incision with dressing, no parth incision erythema and scant swelling -no sacral wounds or pressure ulcers noted underneath brace ASSESSMENT:80-year-old F with past medical history of CAD with sick sinus syndrome s/p PM, HTN, primary right knee OA who presents status post right TKR PLAN: 1. Rehab- PT/OT advance mobility and ADLs, strengthen/stretch/maintain ROM all 4 limbs 2. Ortho- s/p right TKR on 04-01-21, WBAT with knee immobilizer (should remain on at all times per ortho recs and no AROm or PROM until seen by ortho, however should be removed daily for skin checks), c/u monitor wbc/crp, on ASa 81mg BID for DVT ppx -f/u Dr. Almonte, scheduled f/u for 04-20-21 at 11am so surgeon can determine further need for bracing -hx of cervical stenosis, monitor for neck pain, bladder/bowel symptoms, or worsening weakness. 3. Cardiac- hx of CAD on ASA and statin -sick sinus syndrome with dual chamber PM c/u verapamil -CHF on hydrochlorothiazide (+potassium supplements), fluid restrict, daily weights -HTN- c/u Losartan and norvasc (will increase verapamil daily dosing by 60mg as patient with elevated BPs and already on high dose ARB and amlodipine) -medicine consulted to assist in overall management 4. Resp- hx of MAXIMILIANO on cpap -monitor for infection, incentive spirometer 5. 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 GI ppx- prilosec 7. DVT ppx- on ASA 81mg BID -Doppler negative for DVT, + right bakers cyst 8. - OAB on oxybutynin at home, patient was retaining on admission and requiring IC, d/c'd oxybutynin and was voiding better, however restarted by hospitalist, will monitor for recurrence of retention 9. 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 Leukocytosis- resolved, patient's right knee c/u to not appear infected, CRP is c/u to trend down, will c/u to monitor 11. Dispo 04-18-21 to home Vital Signs Vital Sign - Last 24 Hours 04/13/21 04/13/21 04/13/21 04/14/21 14:00 20:09 20:17 06:00 Temp 97.2 97.3 97.6 Pulse 80 64 64 63 Resp 18 18 18 B/P (MAP) 133/67 (89) 158/72 (100) 158/72 160/74 (102) Pulse Ox 80 98 97 O2 Delivery Room Air Room Air 04/14/21 04/14/21 04/14/21 09:31 09:32 10:05 Pulse 64 Resp 18 18 B/P (MAP) 140/66 Medications Scheduled Amlodipine Besylate (Amlodipine Besylate) 10 Mg Tablet, 10 MG PO DAILY Aspirin (Aspirin EC) 81 Mg Tablet.dr, 81 MG PO BID Cetirizine HCl (Cetirizine HCl) 10 Mg Tablet, 10 MG PO DAILY Cholecalciferol (Vitamin D3) (Vitamin D3) 25 Mcg Tablet, 25 MCG PO DAILY Fluticasone Propionate (Fluticasone Propionate) 16 Gm [place].susp, 2 SPRAY NARES BID Gabapentin (Gabapentin) 400 Mg Capsule, 400 MG PO TID Hydrochlorothiazide (Hydrochlorothiazide) 25 Mg Tablet, 25 MG PO DAILY Losartan Potassium (Losartan Potassium) 100 Mg Tablet, 100 MG PO DAILY Magnesium Oxide (Magnesium Oxide) 400 Mg Tablet, 800 MG PO DAILY Multivit-Min/FA/Lycopen/Lutein (Centrum Silver Tablet) 1 Each Tablet, 1 TAB PO DAILY [place]-3 Fatty Acids/Fish Oil (Fish Oil 1,000 mg Capsule) 1 Each Capsule, 2,000 MG PO BID Omeprazole (Omeprazole) 20 Mg Capsule.dr, 20 MG PO DAILY Oxybutynin Chloride (Ditropan Xl) 5 Mg Tab.er.24, 5 MG PO DAILY Potassium Chloride (Potassium Chloride) 20 Meq Tablet.er, 40 MEQ PO DAILY Sennosides/Docusate Sodium (Senna Plus 8.6-50 mg Tablet) 1 Each Tablet, 2 TAB PO QHS Verapamil HCl (Calan Sr) 180 Mg Tablet.er, 180 MG PO QHS Vitamin B Complex/Folic Acid (B-Complex Tablet) 0.4 Mg Tablet, 1 TAB PO DAILY Scheduled PRN Hydrocodone/Chlorphen P-Stirex (Hydrocodone-Chlorphen ER Susp) 115 Ml Maria R.er.12h, 5 ML PO DAILY PRN for COUGH Oxycodone HCl (Oxycodone HCl) 5 Mg Tablet, 5 MG PO Q4H PRN for PAIN Propylene Glycol/Peg 400/Pf (Systane 0.3-0.4% Eye Drop) 1 Each Droperette, 1 DROP OU BID PRN for DRY EYES Allergies Coded Allergies: Sulfa (Sulfonamide Antibiotics) (Unverified Allergy, Unknown, 04/04/21) clarithromycin (Unverified Allergy, Unknown, 04/04/21) etodolac (Unverified Allergy, Unknown, 04/04/21) trimethoprim (Unverified Allergy, Unknown, 04/04/21) SORIN CHILEL MD Apr 14, 2021 12:29
[2021-04-14 14:00] VITALS: BP 152/58
[2021-04-14 21:05] VITALS: BP 139/69
[2021-04-14] MEDS: SENNA 8.6 MG TAB (SENOKOT) PO SCH (21:11)
[2021-04-14] MEDS: **NOTE PATIENT COMMENT** MISC XX SCH ×2 (21:13)
[2021-04-15 05:56] VITALS: BP 158/60
[2021-04-15 07:19] LABS: BASO # 0.1 10^3/uL (0.0-0.2); BASO % 0.7 % (0.0-1.0); EOS # 0.4 10^3/uL (0.0-0.5); EOS % 4.1 % (0.0-3.0); HEMATOCRIT 33.9 % (36.0-47.0); HEMOGLOBIN 11.1 g/dl (12.0-15.5); LYMPH # 0.7 10^3/uL (1.5-5.0); LYMPH % 7.7 % (24.0-44.0); MEAN CORPUSCULAR HGB CONC 32.7 g/dl (32.0-36.5); MEAN CORPUSCULAR VOLUME 100.9 fl (80.0-96.0); MONO # 0.7 10^3/uL (0.0-0.8); MONO % 7.4 % (2.0-8.0); NEUTROPHILS # 7.1 10^3/uL (1.5-8.5); NEUTROPHILS % 78.7 % (36.0-66.0); PLATELET COUNT, AUTOMATED 458 10^3/uL (150-450); RED BLOOD COUNT 3.36 10^6/uL (4.00-5.40)
[2021-04-15 07:40] LABS: BLOOD UREA NITROGEN 12 MG/DL (7-18); CALCIUM LEVEL 9.2 MG/DL (8.8-10.2); CARBON DIOXIDE LEVEL 31 MEQ/L (21-32); CHLORIDE LEVEL 103 MEQ/L (98-107); CREATININE FOR GFR 0.64 MG/DL (0.55-1.30); GLOMERULAR FILTRATION RATE > 60.0 (>32); GLUCOSE, FASTING 81 MG/DL (70-100); POTASSIUM SERUM 3.7 MEQ/L (3.5-5.1); SODIUM LEVEL 140 MEQ/L (136-145)
[2021-04-15] MEDS: oxyBUTYnin *DITROPAN XL* 5 MG TABCR PO SCH (08:55)
[2021-04-15] MEDS: VERAPAMIL 120 MG SR TAB PO SCH ×2 (08:55→20:47)
[2021-04-15] MEDS: VITAMIN B COMPLEX/VIT C CAP PO SCH (08:56)
[2021-04-15] MEDS: ASPIRIN 81MG ENTERIC TABLET PO SCH ×2 (08:56→20:47)
[2021-04-15] MEDS: GABAPENTIN 400MG CAP PO SCH ×3 (08:56→20:47)
[2021-04-15] MEDS: OMEGA-3 1000MG CAPSULE PO SCH ×2 (08:56→20:47)
[2021-04-15] MEDS: MAGNESIUM OXIDE 400MG TAB (MAG-OX) PO SCH (08:57)
[2021-04-15] MEDS: OMEPRAZOLE 20 MG CAP PO SCH (08:57)
[2021-04-15] MEDS: VITAMIN D 1,000 INTERNATIONAL UNITS TABLET PO SCH (08:57)
[2021-04-15] MEDS: POTASSIUM CHLORIDE 10 MEQ SR TABLET PO SCH (08:58)
[2021-04-15] MEDS: MULTIVITAMINS/MINERALS THERAP 1 TAB PO SCH (08:58)
[2021-04-15] MEDS: CETIRIZINE (ZyrTEC) 10 MG TAB PO SCH (08:59)
[2021-04-15] MEDS: LOSARTAN 50MG TABLET PO SCH (08:59)
[2021-04-15] MEDS: DOCUSATE SODIUM 100MG CAPSULE PO SCH ×2 (08:59→20:47)
[2021-04-15] MEDS: LIDOCAINE 5% (LIDODERM) PATCH TD SCH ×2 (09:00→09:01)
[2021-04-15] MEDS: ACETAMINOPHEN 500 MG TAB PO SCH ×3 (09:00→20:48)
[2021-04-15] MEDS: POLYVINYL ALCOHOL OPHTH SOLN 15 ML(LIQUITEARS) OU SCH ×3 (09:01→20:48)
[2021-04-15] MEDS: SALIVA SUBSTITUTE(MOUTHKOTE) BTL MT SCH ×4 (09:01→20:49)
[2021-04-15] MEDS: FLUTICASONE PROP 0.05% NASAL SPRAY 16 GM (FLONASE) NARES SCH ×2 (09:01→20:49)
[2021-04-15] MEDS: REMEDY PHYTOPLEX Z-GUARD PASTE 113GM TUBE (FROM STOREROOM PRODUCT) TOP SCH ×3 (09:02→20:54)
--- NOTE | 2021-04-15 10:35 | IPNPDOC ---
PM&R Progress Note DATE OF SERVICE: Apr 14, 2021 Curtain Worker Progress Note Subjective: Patient seen in her room stating she has some soreness on her right lateral buttock that does not radiate. REVIEW OF SYSTEMS: The following is a completed review of systems and has been reviewed. Review of systems otherwise unremarkable. PAIN: Patient self reports right knee pain and shoulder pain EYES: No recent vision changes. EARS, NOSE, & THROAT: +dysphagia (mild, chronic) CARDIOVASCULAR: Denies chest pain or palpitations PULMONARY: Denies shortness of breath GASTROINTESTINAL: Denies constipation/diarrhea GENITOURINARY: denies dysuria MUSCULOSKELETAL: s/p right knee TKR NEUROLOGICAL:denies paresthesias HEMATOLOGICAL: +anemia SKIN: right knee incision PSYCHIATRIC: Unremarkable All other review of systems found to be negative. PHYSICAL EXAMINATION: VITAL SIGNS: Please see below. GENERAL: Pleasant and cooperative. No acute distress. HEENT: PERRL. Extraocular movements intact. Clear conjunctiva CARDIOVASCULAR: Regular rate and rhythm. No murmurs, rubs, or gallops LUNGS: Clear to auscultation bilaterally. No wheezes. No rhonchi ABDOMEN: Soft, nontender, nondistended. Positive bowel sounds. Normal active bowel sounds NEUROLOGICAL: Alert and oriented times three. Cranial nerves II through XII grossly intact. Sensation grossly intact all 4 limbs EXTREMITIES: 5\5 strength bilateral upper extremities. 5\5 strength right ankle DF/EHL, PF >3/5 hip flexion (limited due to recent surgery) . 5/5 strength in left lower extremity. +mild TTP origin of peroneus longus muscle, pain exacerbated with ankle eversion +TTP right lateral buttock at posterior aspect of greater trochanter (-) maddie's bilat SKIN: knee incision with dressing, no parth incision erythema and scant swelling -no sacral wounds or pressure ulcers noted underneath brace ASSESSMENT:80-year-old F with past medical history of CAD with sick sinus syndrome s/p PM, HTN, primary right knee OA who presents status post right TKR PLAN: 1. Rehab- PT/OT advance mobility and ADLs, strengthen/stretch/maintain ROM all 4 limbs- ambulating with RW 2. Ortho- s/p right TKR on 04-01-21, WBAT with knee immobilizer (should remain on at all times per ortho recs and no AROm or PROM until seen by ortho, however should be removed daily for skin checks), c/u monitor wbc/crp, on ASa 81mg BID for DVT ppx -f/u Dr. Almonte, scheduled f/u for 04-20-21 at 11am so surgeon can determine further need for bracing -hx of cervical stenosis, monitor for neck pain, bladder/bowel symptoms, or worsening weakness. 3. Cardiac- hx of CAD on ASA and statin -sick sinus syndrome with dual chamber PM c/u verapamil -CHF on hydrochlorothiazide (+potassium supplements), fluid restrict, daily weights -HTN- c/u Losartan and norvasc ( increased verapamil daily dosing by 60mg as patient with elevated BPs and already on high dose ARB and amlodipine) -medicine consulted to assist in overall management 4. Resp- hx of MAXIMILIANO on cpap -monitor for infection, incentive spirometer 5. ENT- hx of dysphagia in setting of esophageal strictures, monitor diet on ARU, patient able to self regulate, consider PET CARE ASSOCIATE eval if necessary 6. GI ppx- prilosec 7. DVT ppx- on ASA 81mg BID -Doppler negative for DVT, + right bakers cyst 8. - OAB on oxybutynin 9. 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 Leukocytosis- resolved, patient's right knee c/u to not appear infected, CRP is c/u to trend down, will c/u to monitor 11. Dispo 04-19-21 to home, progressing towards goals Allergies Coded Allergies: Sulfa (Sulfonamide Antibiotics) (Unverified Allergy, Unknown, 04/04/21) clarithromycin (Unverified Allergy, Unknown, 04/04/21) etodolac (Unverified Allergy, Unknown, 04/04/21) trimethoprim (Unverified Allergy, Unknown, 04/04/21) Vital Signs Vital Signs Date Time Temp Pulse Resp B/P (MAP) Pulse Ox O2 Delivery O2 Flow Rate FiO2 04/15/21 08:55 68 158/60 04/15/21 05:56 98.3 18 96 Room Air Laboratory Data CBC/BMP Laboratory Tests 04/15/21 06:46 Labs 24H Laboratory Tests 2 04/15/21 06:46: Immature Granulocyte % (Auto) 1.4, Neutrophils (%) (Auto) 78.7H, Lymphocytes (%) (Auto) 7.7L, Monocytes (%) (Auto) 7.4, Eosinophils (%) (Auto) 4.1H, Basophils (%) (Auto) 0.7, Neutrophils # (Auto) 7.1, Lymphocytes # (Auto) 0.7L, Monocytes # (Auto) 0.7, Eosinophils # (Auto) 0.4, Basophils # (Auto) 0.1, Nucleated Red Blood Cells % (auto) 0.0, Anion Gap 6L, Glomerular Filtration Rate > 60.0, Calcium Level 9.2 Current Medications Current Medications Current Medications Medications (Trade) Dose Ordered Sig/Callie Route PRN Reason Start Time Stop Time Status Last Admin Dose Admin Acetaminophen (Tylenol Tab) 1,000 mg TID PO 04/04/21 16:00 04/15/21 09:00 Amlodipine Besylate (Norvasc) 10 mg DAILY PO 04/05/21 09:00 04/15/21 08:58 Artificial Tears (Akwa Tears) 2 drop TID OU 04/04/21 21:00 04/15/21 09:01 Aspirin (Ecotrin) 81 mg BID PO 04/04/21 21:00 04/15/21 08:56 Benzonatate (Tessalon Perles) 100 mg TIDP PRN PO COUGH 04/04/21 14:10 Bisacodyl (Dulcolax Suppository) [address] CONSTIPATION 04/04/21 14:10 Cetirizine HCl (ZyrTEC) 10 mg DAILY PO 04/05/21 09:00 04/15/21 08:59 Docusate Sodium (Colace) 100 mg BID PO 04/04/21 21:00 04/15/21 08:59 Fish Oil ([place]-3 (1000mg)) 2 cap BID PO 04/12/21 09:00 04/15/21 08:56 Fluticasone Propionate (Flonase 0.05% Nasal [place]) 1 spray BID NARES 04/04/21 21:00 04/15/21 09:01 Gabapentin (Neurontin) 400 mg TID PO 04/04/21 16:00 04/15/21 08:56 Home Med (Med Rec Complete!) ASDIRECTED XX 04/04/21 18:20 04/04/21 18:21 DC Hydrochlorothiazide (Hydrodiuril) 25 mg DAILY PO 04/05/21 09:00 04/13/21 10:41 DC 04/13/21 08:57 Hydrochlorothiazide (Hydrodiuril) 50 mg DAILY PO 04/14/21 09:00 04/15/21 08:58 Lidocaine (Lidoderm Patch) 1 patch DAILY TD 04/12/21 12:45 04/15/21 09:00 Lidocaine (Lidoderm Patch) 1 patch DAILY TD 04/14/21 13:20 04/15/21 09:01 Losartan Potassium (Cozaar) 100 mg DAILY PO 04/05/21 09:00 04/15/21 08:59 Magnesium Oxide (Mag-Ox) 800 mg DAILY PO 04/05/21 09:00 04/15/21 08:57 Multivitamins (Theragram-M) 1 tab DAILY PO 04/05/21 09:00 04/15/21 08:58 Non-Formulary Medication ( See Comment Field Below ) REMOVE LIDODERM PATCH DAILY@21 XX 04/12/21 21:00 04/14/21 21:13 Non-Formulary Medication ( See Comment Field Below ) REMOVE LIDODERM PATCH DAILY@21 XX 04/14/21 21:00 04/14/21 21:13 Omeprazole (PriLOSEC) 40 mg DAILY PO 04/05/21 09:00 04/15/21 08:57 Oxybutynin Chloride (Ditropan Xl) 5 mg DAILY PO 04/05/21 09:00 04/06/21 09:17 DC 04/05/21 08:27 Oxybutynin Chloride (Ditropan Xl) 5 mg DAILY PO 04/12/21 09:00 04/15/21 08:55 Oxycodone HCl (Roxicodone, Oxyir) 5 mg Q4HP PRN PO PAIN 04/04/21 21:30 04/14/21 09:31 Polyethylene Glycol (Miralax) 1 pkt DAILY PRN PO CONSTIPATION 04/04/21 14:10 Potassium Chloride (Micro-K Extencaps) 40 meq DAILY PO 04/05/21 09:00 04/15/21 08:58 Saliva Substitute (Mouthkote) 1 sprays QID MT 04/07/21 17:00 04/15/21 09:01 Senna (Senokot) 1 tab QHS PO 04/04/21 21:00 04/14/21 21:11 Verapamil HCl (Calan Sr) 120 mg BID PO 04/13/21 09:00 04/13/21 10:47 DC Verapamil HCl (Calan Sr) 180 mg QHS PO 04/04/21 21:00 04/13/21 10:44 DC 04/12/21 20:49 Verapamil HCl (Isoptin-Sr, Calan Sr) 120 mg BID PO 04/13/21 10:47 04/15/21 08:55 Vitamin B Complex/ Vitamin C (Therapeutic B Complex w/C) 1 cap DAILY PO 04/05/21 09:00 04/15/21 08:56 Vitamin D (Vitamin D) 1,000 units QAM PO 04/05/21 09:00 04/15/21 08:57 SORIN CHILEL MD Apr 15, 2021 10:35
--- NOTE | 2021-04-15 10:35 | IPNPDOC ---
PM&R Progress Note DATE OF SERVICE: Apr 15, 2021 Safety Representative Progress Note Subjective: Patient reporting her right buttock pain is better and that she is not sure if she will remember to use the walker now that she has been granted room [facility]. REVIEW OF SYSTEMS: The following is a completed review of systems and has been reviewed. Review of systems otherwise unremarkable. PAIN: Patient self reports right knee pain and shoulder pain EYES: No recent vision changes. EARS, NOSE, & THROAT: +dysphagia (mild, chronic) CARDIOVASCULAR: Denies chest pain or palpitations PULMONARY: Denies shortness of breath GASTROINTESTINAL: Denies constipation/diarrhea GENITOURINARY: denies dysuria MUSCULOSKELETAL: s/p right knee TKR NEUROLOGICAL:denies paresthesias HEMATOLOGICAL: +anemia SKIN: right knee incision PSYCHIATRIC: Unremarkable All other review of systems found to be negative. PHYSICAL EXAMINATION: VITAL SIGNS: Please see below. GENERAL: Pleasant and cooperative. No acute distress. HEENT: PERRL. Extraocular movements intact. Clear conjunctiva CARDIOVASCULAR: Regular rate and rhythm. No murmurs, rubs, or gallops LUNGS: Clear to auscultation bilaterally. No wheezes. No rhonchi ABDOMEN: Soft, nontender, nondistended. Positive bowel sounds. Normal active bowel sounds NEUROLOGICAL: Alert and oriented times three. Cranial nerves II through XII grossly intact. Sensation grossly intact all 4 limbs EXTREMITIES: 5\5 strength bilateral upper extremities. 5\5 strength right ankle DF/EHL, PF >3/5 hip flexion (limited due to recent surgery) . 5/5 strength in left lower extremity. +mild TTP origin of peroneus longus muscle, pain exacerbated with ankle eversion +TTP right lateral buttock at posterior aspect of greater trochanter (-) maddie's bilat SKIN: knee incision with dressing, no parth incision erythema and scant swelling -no sacral wounds or pressure ulcers noted underneath brace ASSESSMENT:80-year-old F with past medical history of CAD with sick sinus syndrome s/p PM, HTN, primary right knee OA who presents status post right TKR PLAN: 1. Rehab- PT/OT advance mobility and ADLs, strengthen/stretch/maintain ROM all 4 limbs- ambulating with RW, will hold off on room privileges over the weekend and reassess patient Sunday and confirm she understands she needs to ankit the walker 2. Ortho- s/p right TKR on 04-01-21, WBAT with knee immobilizer (should remain on at all times per ortho recs and no AROm or PROM until seen by ortho, however should be removed daily for skin checks), c/u monitor wbc/crp, on ASa 81mg BID for DVT ppx -f/u Dr. Almonte, scheduled f/u for 04-20-21 at 11am so surgeon can determine further need for bracing -hx of cervical stenosis, monitor for neck pain, bladder/bowel symptoms, or worsening weakness. 3. Cardiac- hx of CAD on ASA and statin -sick sinus syndrome with dual chamber PM c/u verapamil -CHF on hydrochlorothiazide (+potassium supplements), fluid restrict, daily weights -HTN- c/u Losartan and norvasc ( increased verapamil daily dosing by 60mg as patient with elevated BPs and already on high dose ARB and amlodipine) -medicine consulted to assist in overall management 4. Resp- hx of MAXIMILIANO on cpap -monitor for infection, incentive spirometer 5. ENT- hx of dysphagia in setting of esophageal strictures, monitor diet on ARU, patient able to self regulate, consider ROLLOUT MANAGER eval if necessary 6. GI ppx- prilosec 7. DVT ppx- on ASA 81mg BID -Doppler negative for DVT, + right bakers cyst 8. - OAB on oxybutynin 9. 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 Leukocytosis- resolved, patient's right knee c/u to not appear infected, CRP is c/u to trend down, will c/u to monitor- no concern for infection 11. Dispo 04-19-21 to home, progressing towards goals Allergies Coded Allergies: Sulfa (Sulfonamide Antibiotics) (Unverified Allergy, Unknown, 04/04/21) clarithromycin (Unverified Allergy, Unknown, 04/04/21) etodolac (Unverified Allergy, Unknown, 04/04/21) trimethoprim (Unverified Allergy, Unknown, 04/04/21) Vital Signs Vital Signs Date Time Temp Pulse Resp B/P (MAP) Pulse Ox O2 Delivery O2 Flow Rate FiO2 04/15/21 08:55 68 158/60 04/15/21 05:56 98.3 18 96 Room Air Laboratory Data CBC/BMP Laboratory Tests 04/15/21 06:46 Labs 24H Laboratory Tests 2 04/15/21 06:46: Immature Granulocyte % (Auto) 1.4, Neutrophils (%) (Auto) 78.7H, Lymphocytes (%) (Auto) 7.7L, Monocytes (%) (Auto) 7.4, Eosinophils (%) (Auto) 4.1H, Basophils (%) (Auto) 0.7, Neutrophils # (Auto) 7.1, Lymphocytes # (Auto) 0.7L, Monocytes # (Auto) 0.7, Eosinophils # (Auto) 0.4, Basophils # (Auto) 0.1, Nucleated Red Blood Cells % (auto) 0.0, Anion Gap 6L, Glomerular Filtration Rate > 60.0, Calcium Level 9.2 Current Medications Current Medications Current Medications Medications (Trade) Dose Ordered Sig/Callie Route PRN Reason Start Time Stop Time Status Last Admin Dose Admin Acetaminophen (Tylenol Tab) 1,000 mg TID PO 04/04/21 16:00 04/15/21 09:00 Amlodipine Besylate (Norvasc) 10 mg DAILY PO 04/05/21 09:00 04/15/21 08:58 Artificial Tears (Akwa Tears) 2 drop TID OU 04/04/21 21:00 04/15/21 09:01 Aspirin (Ecotrin) 81 mg BID PO 04/04/21 21:00 04/15/21 08:56 Benzonatate (Tessalon Perles) 100 mg TIDP PRN PO COUGH 04/04/21 14:10 Bisacodyl (Dulcolax Suppository) 10 mg DAILYPRN PRN [place] CONSTIPATION 04/04/21 14:10 Cetirizine HCl (ZyrTEC) 10 mg DAILY PO 04/05/21 09:00 04/15/21 08:59 Docusate Sodium (Colace) 100 mg BID PO 04/04/21 21:00 04/15/21 08:59 Fish Oil ([place]-3 (1000mg)) 2 cap BID PO 04/12/21 09:00 04/15/21 08:56 Fluticasone Propionate (Flonase 0.05% Nasal [place]) 1 spray BID NARES 04/04/21 21:00 04/15/21 09:01 Gabapentin (Neurontin) 400 mg TID PO 04/04/21 16:00 04/15/21 08:56 Home Med (Med Rec Complete!) ASDIRECTED XX 04/04/21 18:20 04/04/21 18:21 DC Hydrochlorothiazide (Hydrodiuril) 25 mg DAILY PO 04/05/21 09:00 04/13/21 10:41 DC 04/13/21 08:57 Hydrochlorothiazide (Hydrodiuril) 50 mg DAILY PO 04/14/21 09:00 04/15/21 08:58 Lidocaine (Lidoderm Patch) 1 patch DAILY TD 04/12/21 12:45 04/15/21 09:00 Lidocaine (Lidoderm Patch) 1 patch DAILY TD 04/14/21 13:20 04/15/21 09:01 Losartan Potassium (Cozaar) 100 mg DAILY PO 04/05/21 09:00 04/15/21 08:59 Magnesium Oxide (Mag-Ox) 800 mg DAILY PO 04/05/21 09:00 04/15/21 08:57 Multivitamins (Theragram-M) 1 tab DAILY PO 04/05/21 09:00 04/15/21 08:58 Non-Formulary Medication ( See Comment Field Below ) REMOVE LIDODERM PATCH DAILY@ XX 04/12/21 21:00 04/14/21 21:13 Non-Formulary Medication ( See Comment Field Below ) REMOVE LIDODERM PATCH DAILY@21 XX 04/14/21 21:00 04/14/21 21:13 Omeprazole (PriLOSEC) 40 mg DAILY PO 04/05/21 09:00 04/15/21 08:57 Oxybutynin Chloride (Ditropan Xl) 5 mg DAILY PO 04/05/21 09:00 04/06/21 09:17 DC 04/05/21 08:27 Oxybutynin Chloride (Ditropan Xl) 5 mg DAILY PO 04/12/21 09:00 04/15/21 08:55 Oxycodone HCl (Roxicodone, Oxyir) 5 mg Q4HP PRN PO PAIN 04/04/21 21:30 04/14/21 09:31 Polyethylene Glycol (Miralax) 1 pkt DAILY PRN PO CONSTIPATION 04/04/21 14:10 Potassium Chloride (Micro-K Extencaps) 40 meq DAILY PO 04/05/21 09:00 04/15/21 08:58 Saliva Substitute (Mouthkote) 1 sprays QID MT 04/07/21 17:00 04/15/21 09:01 Senna (Senokot) 1 tab QHS PO 04/04/21 21:00 04/14/21 21:11 Verapamil HCl (Calan Sr) 120 mg BID PO 04/13/21 09:00 04/13/21 10:47 DC Verapamil HCl (Calan Sr) 180 mg QHS PO 04/04/21 21:00 04/13/21 10:44 DC 04/12/21 20:49 Verapamil HCl (Isoptin-Sr, Calan Sr) 120 mg BID PO 04/13/21 10:47 04/15/21 08:55 Vitamin B Complex/ Vitamin C (Therapeutic B Complex w/C) 1 cap DAILY PO 04/05/21 09:00 04/15/21 08:56 Vitamin D (Vitamin D) 1,000 units QAM PO 04/05/21 09:00 04/15/21 08:57 SORIN CIHLEL MD Apr 15, 2021 10:35
[2021-04-15 14:00] VITALS: BP 140/58
[2021-04-15 20:00] VITALS: BP 152/70
[2021-04-15] MEDS: SENNA 8.6 MG TAB (SENOKOT) PO SCH (20:47)
[2021-04-15] MEDS: oxyCODONE 5MG TAB PO PRN (20:48)
[2021-04-15] MEDS: **NOTE PATIENT COMMENT** MISC XX SCH ×2 (20:54→20:55)
[2021-04-16 05:37] VITALS: BP 154/75
[2021-04-16] MEDS: VITAMIN B COMPLEX/VIT C CAP PO SCH (09:28)
[2021-04-16] MEDS: MAGNESIUM OXIDE 400MG TAB (MAG-OX) PO SCH (09:28)
[2021-04-16] MEDS: POTASSIUM CHLORIDE 10 MEQ SR TABLET PO SCH (09:28)
[2021-04-16] MEDS: ASPIRIN 81MG ENTERIC TABLET PO SCH ×2 (09:28→20:09)
[2021-04-16] MEDS: OMEPRAZOLE 20 MG CAP PO SCH (09:28)
[2021-04-16] MEDS: VITAMIN D 1,000 INTERNATIONAL UNITS TABLET PO SCH (09:28)
[2021-04-16] MEDS: DOCUSATE SODIUM 100MG CAPSULE PO SCH ×2 (09:29→20:09)
[2021-04-16] MEDS: CETIRIZINE (ZyrTEC) 10 MG TAB PO SCH (09:29)
[2021-04-16] MEDS: oxyBUTYnin *DITROPAN XL* 5 MG TABCR PO SCH (09:29)
[2021-04-16] MEDS: MIRALAX *UNIT DOSE* 17GM PACKET PO PRN (09:29)
[2021-04-16] MEDS: OMEGA-3 1000MG CAPSULE PO SCH ×2 (09:29→20:09)
[2021-04-16] MEDS: GABAPENTIN 400MG CAP PO SCH ×3 (09:29→20:09)
[2021-04-16] MEDS: MULTIVITAMINS/MINERALS THERAP 1 TAB PO SCH (09:29)
[2021-04-16] MEDS: ACETAMINOPHEN 500 MG TAB PO SCH ×4 (09:30→20:10)
[2021-04-16] MEDS: LOSARTAN 50MG TABLET PO SCH (09:30)
[2021-04-16] MEDS: SALIVA SUBSTITUTE(MOUTHKOTE) BTL MT SCH ×4 (09:31→20:11)
[2021-04-16] MEDS: VERAPAMIL 120 MG SR TAB PO SCH ×2 (09:31→20:10)
[2021-04-16] MEDS: FLUTICASONE PROP 0.05% NASAL SPRAY 16 GM (FLONASE) NARES SCH ×2 (09:32→20:11)
[2021-04-16] MEDS: POLYVINYL ALCOHOL OPHTH SOLN 15 ML(LIQUITEARS) OU SCH ×3 (09:32→20:11)
[2021-04-16] MEDS: REMEDY PHYTOPLEX Z-GUARD PASTE 113GM TUBE (FROM STOREROOM PRODUCT) TOP SCH ×3 (09:33→20:11)
[2021-04-16] MEDS: LIDOCAINE 5% (LIDODERM) PATCH TD SCH ×2 (09:39→09:40)
[2021-04-16 14:00] VITALS: BP 125/61
[2021-04-16 20:00] VITALS: BP 163/77
[2021-04-16] MEDS: SENNA 8.6 MG TAB (SENOKOT) PO SCH (20:09)
[2021-04-16] MEDS: oxyCODONE 5MG TAB PO PRN (20:10)
[2021-04-16] MEDS: **NOTE PATIENT COMMENT** MISC XX SCH ×2 (20:12)
[2021-04-17 05:29] VITALS: BP 148/69
[2021-04-17] MEDS: REMEDY PHYTOPLEX Z-GUARD PASTE 113GM TUBE (FROM STOREROOM PRODUCT) TOP SCH ×3 (09:00→20:38)
[2021-04-17] MEDS: OMEGA-3 1000MG CAPSULE PO SCH ×2 (09:48→20:24)
[2021-04-17] MEDS: OMEPRAZOLE 20 MG CAP PO SCH (09:48)
[2021-04-17] MEDS: CETIRIZINE (ZyrTEC) 10 MG TAB PO SCH (09:48)
[2021-04-17] MEDS: VITAMIN D 1,000 INTERNATIONAL UNITS TABLET PO SCH (09:49)
[2021-04-17] MEDS: VERAPAMIL 120 MG SR TAB PO SCH ×2 (09:49→20:38)
[2021-04-17] MEDS: POTASSIUM CHLORIDE 10 MEQ SR TABLET PO SCH (09:49)
[2021-04-17] MEDS: GABAPENTIN 400MG CAP PO SCH ×3 (09:49→20:37)
[2021-04-17] MEDS: DOCUSATE SODIUM 100MG CAPSULE PO SCH ×2 (09:49→20:37)
[2021-04-17] MEDS: ASPIRIN 81MG ENTERIC TABLET PO SCH ×2 (09:50→20:37)
[2021-04-17] MEDS: LOSARTAN 50MG TABLET PO SCH (09:50)
[2021-04-17] MEDS: VITAMIN B COMPLEX/VIT C CAP PO SCH (09:50)
[2021-04-17] MEDS: MULTIVITAMINS/MINERALS THERAP 1 TAB PO SCH (09:50)
[2021-04-17] MEDS: MIRALAX *UNIT DOSE* 17GM PACKET PO PRN (09:50)
[2021-04-17] MEDS: MAGNESIUM OXIDE 400MG TAB (MAG-OX) PO SCH (09:50)
[2021-04-17] MEDS: LIDOCAINE 5% (LIDODERM) PATCH TD SCH ×2 (09:51)
[2021-04-17] MEDS: ACETAMINOPHEN 500 MG TAB PO SCH ×3 (09:51→20:38)
[2021-04-17] MEDS: FLUTICASONE PROP 0.05% NASAL SPRAY 16 GM (FLONASE) NARES SCH ×2 (09:52→20:39)
[2021-04-17] MEDS: POLYVINYL ALCOHOL OPHTH SOLN 15 ML(LIQUITEARS) OU SCH ×3 (09:52→20:39)
[2021-04-17] MEDS: SALIVA SUBSTITUTE(MOUTHKOTE) BTL MT SCH ×4 (09:54→20:39)
[2021-04-17] MEDS: oxyBUTYnin *DITROPAN XL* 5 MG TABCR PO SCH (10:42)
[2021-04-17 14:29] VITALS: BP_SYST 101; BP_SYST 121; BP_DIAS 58
[2021-04-17 20:00] VITALS: BP 126/60
[2021-04-17] MEDS: oxyCODONE 5MG TAB PO PRN (20:25)
[2021-04-17] MEDS: SENNA 8.6 MG TAB (SENOKOT) PO SCH (20:37)
[2021-04-17] MEDS: **NOTE PATIENT COMMENT** MISC XX SCH ×2 (20:39)
[2021-04-18 06:00] VITALS: BP 142/72
[2021-04-18 07:08] LABS: BASO # 0.1 10^3/uL (0.0-0.2); BASO % 0.9 % (0.0-1.0); EOS # 0.4 10^3/uL (0.0-0.5); EOS % 4.1 % (0.0-3.0); HEMATOCRIT 35.6 % (36.0-47.0); HEMOGLOBIN 11.4 g/dl (12.0-15.5); LYMPH # 0.8 10^3/uL (1.5-5.0); LYMPH % 9.2 % (24.0-44.0); MEAN CORPUSCULAR HEMOGLOBIN 32.1 pg (27.0-33.0); MEAN CORPUSCULAR VOLUME 100.3 fl (80.0-96.0); MONO # 0.8 10^3/uL (0.0-0.8); MONO % 8.6 % (2.0-8.0); NEUTROPHILS # 6.8 10^3/uL (1.5-8.5); NEUTROPHILS % 75.9 % (36.0-66.0); PLATELET COUNT, AUTOMATED 437 10^3/uL (150-450); RED BLOOD COUNT 3.55 10^6/uL (4.00-5.40)
[2021-04-18 07:31] LABS: BLOOD UREA NITROGEN 13 MG/DL (7-18); CALCIUM LEVEL 8.9 MG/DL (8.8-10.2); CARBON DIOXIDE LEVEL 30 MEQ/L (21-32); CHLORIDE LEVEL 103 MEQ/L (98-107); CREATININE FOR GFR 0.61 MG/DL (0.55-1.30); GLOMERULAR FILTRATION RATE > 60.0 (>32); GLUCOSE, FASTING 77 MG/DL (70-100); POTASSIUM SERUM 3.8 MEQ/L (3.5-5.1); SODIUM LEVEL 139 MEQ/L (136-145)
[2021-04-18] MEDS: SALIVA SUBSTITUTE(MOUTHKOTE) BTL MT SCH ×4 (09:00→21:01)
[2021-04-18] MEDS: POLYVINYL ALCOHOL OPHTH SOLN 15 ML(LIQUITEARS) OU SCH ×3 (09:00→21:01)
[2021-04-18] MEDS: FLUTICASONE PROP 0.05% NASAL SPRAY 16 GM (FLONASE) NARES SCH ×2 (09:00→21:01)
[2021-04-18] MEDS: REMEDY PHYTOPLEX Z-GUARD PASTE 113GM TUBE (FROM STOREROOM PRODUCT) TOP SCH ×3 (09:00→21:01)
[2021-04-18] MEDS ORDERED: VITAD1000T PO (09:08)
[2021-04-18] MEDS ORDERED: ASPI-551 PO (09:08)
[2021-04-18] MEDS ORDERED: COZA50TA PO (09:08)
[2021-04-18] MEDS ORDERED: DITR5TAB PO (09:08)
[2021-04-18] MEDS ORDERED: KLOR10TA76 PO (09:08)
[2021-04-18] MEDS ORDERED: OMEP-218 PO (09:08)
[2021-04-18] MEDS ORDERED: MAGN400T2 PO (09:08)
[2021-04-18] MEDS ORDERED: GABA-283 PO (09:08)
[2021-04-18] MEDS ORDERED: FLUTISP NARES (09:08)
[2021-04-18] MEDS ORDERED: B-CO1TAB12 PO (09:08)
[2021-04-18] MEDS ORDERED: CETI10TA PO (09:08)
[2021-04-18] MEDS ORDERED: AMLO1TAB25 PO (09:08)
[2021-04-18] MEDS ORDERED: VERA12TASA PO (09:08)
[2021-04-18] MEDS ORDERED: HYDR-3490 PO (09:08)
[2021-04-18] MEDS ORDERED: OXYC-517 PO (09:09)
[2021-04-18] MEDS: oxyBUTYnin *DITROPAN XL* 5 MG TABCR PO SCH (09:33)
[2021-04-18] MEDS: POTASSIUM CHLORIDE 10 MEQ SR TABLET PO SCH (09:34)
[2021-04-18] MEDS: MULTIVITAMINS/MINERALS THERAP 1 TAB PO SCH (09:34)
[2021-04-18] MEDS: DOCUSATE SODIUM 100MG CAPSULE PO SCH ×2 (09:34→21:00)
[2021-04-18] MEDS: ASPIRIN 81MG ENTERIC TABLET PO SCH ×2 (09:34→20:59)
[2021-04-18] MEDS: OMEPRAZOLE 20 MG CAP PO SCH (09:34)
[2021-04-18] MEDS: VITAMIN B COMPLEX/VIT C CAP PO SCH (09:34)
[2021-04-18] MEDS: GABAPENTIN 400MG CAP PO SCH ×3 (09:34→20:59)
[2021-04-18] MEDS: OMEGA-3 1000MG CAPSULE PO SCH ×2 (09:34→20:59)
[2021-04-18] MEDS: MAGNESIUM OXIDE 400MG TAB (MAG-OX) PO SCH (09:35)
[2021-04-18] MEDS: VITAMIN D 1,000 INTERNATIONAL UNITS TABLET PO SCH (09:35)
[2021-04-18] MEDS: ACETAMINOPHEN 500 MG TAB PO SCH ×3 (09:35→20:59)
[2021-04-18] MEDS: CETIRIZINE (ZyrTEC) 10 MG TAB PO SCH (09:35)
[2021-04-18] MEDS: VERAPAMIL 120 MG SR TAB PO SCH ×2 (09:38→20:58)
[2021-04-18] MEDS: LOSARTAN 50MG TABLET PO SCH (09:38)
[2021-04-18] MEDS: oxyCODONE 5MG TAB PO PRN ×3 (09:45→21:00)
[2021-04-18] MEDS: LIDOCAINE 5% (LIDODERM) PATCH TD SCH ×2 (09:45→09:47)
--- NOTE | 2021-04-18 10:05 | IPNPDOC ---
PM&R Progress Note DATE OF SERVICE: Apr 18, 2021 Aircraft Avionics Technician Progress Note Subjective: Patient reporting she feels ready for room privileges and states she will remember to use the walker. REVIEW OF SYSTEMS: The following is a completed review of systems and has been reviewed. Review of systems otherwise unremarkable. PAIN: Patient self reports right knee pain and shoulder pain EYES: No recent vision changes. EARS, NOSE, & THROAT: +dysphagia (mild, chronic) CARDIOVASCULAR: Denies chest pain or palpitations PULMONARY: Denies shortness of breath GASTROINTESTINAL: Denies constipation/diarrhea GENITOURINARY: denies dysuria MUSCULOSKELETAL: s/p right knee TKR NEUROLOGICAL:denies paresthesias HEMATOLOGICAL: +anemia SKIN: right knee incision PSYCHIATRIC: Unremarkable All other review of systems found to be negative. PHYSICAL EXAMINATION: VITAL SIGNS: Please see below. GENERAL: Pleasant and cooperative. No acute distress. HEENT: PERRL. Extraocular movements intact. Clear conjunctiva CARDIOVASCULAR: Regular rate and rhythm. No murmurs, rubs, or gallops LUNGS: Clear to auscultation bilaterally. No wheezes. No rhonchi ABDOMEN: Soft, nontender, nondistended. Positive bowel sounds. Normal active bowel sounds NEUROLOGICAL: Alert and oriented times three. Cranial nerves II through XII grossly intact. Sensation grossly intact all 4 limbs EXTREMITIES: 5\5 strength bilateral upper extremities. 5\5 strength right ankle DF/EHL, PF >3/5 hip flexion (limited due to recent surgery) . 5/5 strength in left lower extremity. +mild TTP origin of peroneus longus muscle, pain exacerbated with ankle eversion +TTP right lateral buttock at posterior aspect of greater trochanter (-) maddie's bilat SKIN: knee incision with dressing, no parth incision erythema and scant swelling -no sacral wounds or pressure ulcers noted underneath brace ASSESSMENT:80-year-old F with past medical history of CAD with sick sinus syndrome s/p PM, HTN, primary right knee OA who presents status post right TKR PLAN: 1. Rehab- PT/OT advance mobility and ADLs, strengthen/stretch/maintain ROM all 4 limbs- ambulating with RW, room privileges 2. Ortho- s/p right TKR on 04-01-21, WBAT with knee immobilizer (should remain on at all times per ortho recs and no AROm or PROM until seen by ortho, however should be removed daily for skin checks), c/u monitor wbc/crp, on ASa 81mg BID for DVT ppx -f/u Dr. Almonte, scheduled f/u for 04-20-21 at 11am so surgeon can determine further need for bracing -hx of cervical stenosis, monitor for neck pain, bladder/bowel symptoms, or worsening weakness. 3. Cardiac- hx of CAD on ASA and statin -sick sinus syndrome with dual chamber PM c/u verapamil -CHF on hydrochlorothiazide (+potassium supplements), fluid restrict, daily weights -HTN- c/u Losartan and norvasc ( increased verapamil daily dosing by 60mg as patient with elevated BPs and already on high dose ARB and amlodipine) -medicine consulted to assist in overall management 4. Resp- hx of MAXIMILIANO on cpap -monitor for infection, incentive spirometer 5. ENT- hx of dysphagia in setting of esophageal strictures, monitor diet on AR U, patient able to self regulate, consider COMMERCIAL AIRPLANE PILOT eval if necessary 6. GI ppx- prilosec 7. DVT ppx- on ASA 81mg BID -Doppler negative for DVT, + right bakers cyst 8. - OAB on oxybutynin 9. 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 Leukocytosis- resolved, patient's right knee c/u to not appear infected, CRP is c/u to trend down, will c/u to monitor- no concern for infection 11. Dispo 04-19-21 to home, progressing towards goals Allergies Coded Allergies: Sulfa (Sulfonamide Antibiotics) (Unverified Allergy, Unknown, 04/04/21) clarithromycin (Unverified Allergy, Unknown, 04/04/21) etodolac (Unverified Allergy, Unknown, 04/04/21) trimethoprim (Unverified Allergy, Unknown, 04/04/21) Vital Signs Vital Signs Date Time Temp Pulse Resp B/P (MAP) Pulse Ox O2 Delivery O2 Flow Rate FiO2 04/18/21 09:45 18 Room Air 6/7/21 09:38 61 139/63 04/18/21 06:00 97.6 98 Laboratory Data CBC/BMP Laboratory Tests 04/18/21 06:35 Labs 24H Laboratory Tests 2 04/18/21 06:35: Immature Granulocyte % (Auto) 1.3, Neutrophils (%) (Auto) 75.9H, Lymphocytes (%) (Auto) 9.2L, Monocytes (%) (Auto) 8.6H, Eosinophils (%) (Auto) 4.1H, Basophils (%) (Auto) 0.9, Neutrophils # (Auto) 6.8, Lymphocytes # (Auto) 0.8L, Monocytes # (Auto) 0.8, Eosinophils # (Auto) 0.4, Basophils # (Auto) 0.1, Nucleated Red Blood Cells % (auto) 0.0, Anion Gap 6L, Glomerular Filtration Rate > 60.0, Calcium Level 8.9 Current Medications Current Medications Current Medications Medications (Trade) Dose Ordered Sig/Callie Route PRN Reason Start Time Stop Time Status Last Admin Dose Admin Acetaminophen (Tylenol Tab) 1,000 mg TID PO 04/04/21 16:00 04/18/21 09:35 Amlodipine Besylate (Norvasc) 10 mg DAILY PO 04/05/21 09:00 04/18/21 09:38 Artificial Tears (Akwa Tears) 2 drop TID OU 04/04/21 21:00 04/18/21 09:00 Aspirin (Ecotrin) 81 mg BID PO 04/04/21 21:00 04/18/21 09:34 Benzonatate (Tessalon Perles) 100 mg TIDP PRN PO COUGH 04/04/21 14:10 Bisacodyl (Dulcolax Suppository) 10 mg DAILYPRN PRN [place] CONSTIPATION 04/04/21 14:10 Cetirizine HCl (ZyrTEC) 10 mg DAILY PO 04/05/21 09:00 04/18/21 09:35 Docusate Sodium (Colace) 100 mg BID PO 04/04/21 21:00 04/18/21 09:34 Fish Oil ([place]-3 (1000mg)) 2 cap BID PO 04/12/21 09:00 04/18/21 09:34 Fluticasone Propionate (Flonase 0.05% Nasal [place]) 1 spray BID NARES 04/04/21 21:00 04/18/21 09:00 Gabapentin (Neurontin) 400 mg TID PO 04/04/21 16:00 04/18/21 09:34 Home Med (Med Rec Complete!) ASDIRECTED XX 04/04/21 18:20 04/04/21 18:21 DC Hydrochlorothiazide (Hydrodiuril) 25 mg DAILY PO 04/05/21 09:00 04/13/21 10:41 DC 04/13/21 08:57 Hydrochlorothiazide (Hydrodiuril) 50 mg DAILY PO 04/14/21 09:00 04/18/21 09:38 Lidocaine (Lidoderm Patch) 1 patch DAILY TD 04/12/21 12:45 04/18/21 09:45 Lidocaine (Lidoderm Patch) 1 patch DAILY TD 04/14/21 13:20 04/18/21 09:47 Losartan Potassium (Cozaar) 100 mg DAILY PO 04/05/21 09:00 04/18/21 09:38 Magnesium Oxide (Mag-Ox) 800 mg DAILY PO 04/05/21 09:00 04/18/21 09:35 Multivitamins (Theragram-M) 1 tab DAILY PO 04/05/21 09:00 04/18/21 09:34 Non-Formulary Medication ( See Comment Field Below ) REMOVE LIDODERM PATCH DAILY@21 XX 04/12/21 21:00 04/17/21 20:39 Non-Formulary Medication ( See Comment Field Below ) REMOVE LIDODERM PATCH DAILY@21 XX 04/14/21 21:00 04/17/21 20:39 Omeprazole (PriLOSEC) 40 mg DAILY PO 04/05/21 09:00 04/18/21 09:34 Oxybutynin Chloride (Ditropan Xl) 5 mg DAILY PO 04/05/21 09:00 04/06/21 09:17 DC 04/05/21 08:27 Oxybutynin Chloride (Ditropan Xl) 5 mg DAILY PO 04/12/21 09:00 04/18/21 09:33 Oxycodone HCl (Roxicodone, Oxyir) 5 mg Q4HP PRN PO PAIN 04/04/21 21:30 04/18/21 09:45 Polyethylene Glycol (Miralax) 1 pkt DAILY PRN PO CONSTIPATION 04/04/21 14:10 04/17/21 09:50 Potassium Chloride (Micro-K Extencaps) 40 meq DAILY PO 04/05/21 09:00 04/18/21 09:34 Saliva Substitute (Mouthkote) 1 sprays QID MT 04/07/21 17:00 04/18/21 09:00 Senna (Senokot) 1 tab QHS PO 04/04/21 21:00 04/17/21 20:37 Verapamil HCl (Calan Sr) 120 mg BID PO 04/13/21 09:00 04/13/21 10:47 DC Verapamil HCl (Calan Sr) 180 mg QHS PO 04/04/21 21:00 04/13/21 10:44 DC 04/12/21 20:49 Verapamil HCl (Isoptin-Sr, Calan Sr) 120 mg BID PO 04/13/21 10:47 04/18/21 09:38 Vitamin B Complex/ Vitamin C (Therapeutic B Complex w/C) 1 cap DAILY PO 04/05/21 09:00 04/18/21 09:34 Vitamin D (Vitamin D) 1,000 units QAM PO 04/05/21 09:00 04/18/21 09:35 SORIN CHILEL MD Apr 18, 2021 10:05
[2021-04-18 14:00] VITALS: BP 152/68
[2021-04-18] MEDS: SENNA 8.6 MG TAB (SENOKOT) PO SCH (20:59)
[2021-04-18] MEDS: **NOTE PATIENT COMMENT** MISC XX SCH ×2 (21:02)
[2021-04-18 21:03] VITALS: BP 153/76
[2021-04-19 07:07] VITALS: BP 166/78
[2021-04-19] MEDS: SALIVA SUBSTITUTE(MOUTHKOTE) BTL MT SCH ×2 (08:24→13:00)
[2021-04-19] MEDS: FLUTICASONE PROP 0.05% NASAL SPRAY 16 GM (FLONASE) NARES SCH (08:24)
[2021-04-19] MEDS: POLYVINYL ALCOHOL OPHTH SOLN 15 ML(LIQUITEARS) OU SCH (08:24)
[2021-04-19] MEDS: oxyBUTYnin *DITROPAN XL* 5 MG TABCR PO SCH (08:25)
[2021-04-19] MEDS: MAGNESIUM OXIDE 400MG TAB (MAG-OX) PO SCH (08:26)
[2021-04-19] MEDS: VITAMIN B COMPLEX/VIT C CAP PO SCH (08:26)
[2021-04-19] MEDS: MULTIVITAMINS/MINERALS THERAP 1 TAB PO SCH (08:26)
[2021-04-19] MEDS: OMEGA-3 1000MG CAPSULE PO SCH (08:26)
[2021-04-19] MEDS: VERAPAMIL 120 MG SR TAB PO SCH (08:26)
[2021-04-19] MEDS: CETIRIZINE (ZyrTEC) 10 MG TAB PO SCH (08:26)
[2021-04-19] MEDS: ASPIRIN 81MG ENTERIC TABLET PO SCH (08:26)
[2021-04-19] MEDS: LOSARTAN 50MG TABLET PO SCH (08:27)
[2021-04-19] MEDS: GABAPENTIN 400MG CAP PO SCH (08:27)
[2021-04-19] MEDS: POTASSIUM CHLORIDE 10 MEQ SR TABLET PO SCH (08:27)
[2021-04-19] MEDS: OMEPRAZOLE 20 MG CAP PO SCH (08:27)
[2021-04-19] MEDS: VITAMIN D 1,000 INTERNATIONAL UNITS TABLET PO SCH (08:27)
[2021-04-19 08:28] VITALS: BP 127/66
[2021-04-19] MEDS: ACETAMINOPHEN 500 MG TAB PO SCH ×2 (08:29→09:29)
[2021-04-19] MEDS: oxyCODONE 5MG TAB PO PRN (08:30)
[2021-04-19] MEDS: REMEDY PHYTOPLEX Z-GUARD PASTE 113GM TUBE (FROM STOREROOM PRODUCT) TOP SCH (08:30)
[2021-04-19] MEDS: LIDOCAINE 5% (LIDODERM) PATCH TD SCH ×2 (08:35)
--- NOTE | 2021-04-19 09:26 | PMRDS ---
NAME: LAVONNE REED [facility] WT ID#: [id number] JOB: [id number] LESIA: 04/04/2021 ACCT: [id number] DOCTOR: SORIN CHILEL MD PMR DISCHARGE SUMMARY DATE OF ADMISSION: 04/04/2021 DATE OF DISCHARGE: 04/19/2021 CHIEF COMPLAINT/DISCHARGE DIAGNOSIS: Right total knee replacement. HISTORY OF PRESENT ILLNESS: This is an 80-year-old female with a past medical history of CAD, sick sinus syndrome with pacemaker, MAXIIMLIANO on CPAP, hypertension, hyperlipidemia, anxiety, cervical stenosis, dysphagia due to esophageal strictures, overactive bladder, PVD, primary __, who was directly admitted to [facility] on 03/31/2021 for total knee replacement in the setting of OA and frequent dislocations. She was evaluated by Cardiology and cleared for surgery which was performed by Dr. Munoz on 04/01/2021. She had postop lower extremity swelling and pain for which Doppler study was performed on 04/01/2021 showing no DVT. Additionally, she had pain with postop anemia with a hemoglobin of 9.8 on 04/04/2021 and leukocytosis with a white count of 17.6 with low grade temperature. Therapy evaluated her and found her to have considerable mobility and ADL impairments and she was deemed medically appropriate for discharge to [facility]U on 04/04/2021. PAST MEDICAL HISTORY: As per HPI. HOSPITAL COURSE: Patient was admitted and enrolled in a comprehensive PT/OT program. She received 24 hour nursing supervision and weekly team meetings were held to discuss her progress. Patient's right surgical incision was evaluated daily for skin checks. On admission she had some swelling and erythema and an elevated white count, however her white count trended down and her CRP also trended down and there were no further signs of infection or concern for infection. She had elevated blood pressures during her hospital course for which her verapamil dosing was adjusted. She had no complaints of difficulty swallowing in the setting of esophageal strictures. The patient was deemed able to self-regulate. She made steady gains in therapy, was granted room privileges prior to discharge and was deemed medically and functionally stable to return home. DISCHARGE MEDICATIONS: As per instructions. FUNCTIONAL HISTORY ON DISCHARGE: The patient was modified independent for functional transfers, ambulation, stairs, or standby assist. Thank you for this referral.
[2021-04-19] MEDS: DOCUSATE SODIUM 100MG CAPSULE PO SCH (09:48)
[2021-04-19 14:00] VITALS: BP 115/59
== END 2021-04-19 14:50 | disposition home health service (06) | DRG 561 ==
LOC: M PM&R 17:15
PROVIDERS: ADMIT Physical Medicine & Rehabilitation; ATTEND Physical Medicine & Rehabilitation
DX: Z47.1 Aftercare following joint replacement surgery (principal); I25.10 Atherosclerotic heart disease of native coronary artery without angina pectoris; I49.5 Sick sinus syndrome; G47.33 Obstructive sleep apnea (adult) (pediatric); I11.0 Hypertensive heart disease with heart failure; I50.9 Heart failure, unspecified; E78.5 Hyperlipidemia, unspecified; F41.9 Anxiety disorder, unspecified; M48.02 Spinal stenosis, cervical region; R13.10 Dysphagia, unspecified; K22.2 Esophageal obstruction; N32.81 Overactive bladder; I73.9 Peripheral vascular disease, unspecified; Z74.09 Other reduced mobility; Z74.1 Need for assistance with personal care; D64.9 Anemia, unspecified; Z96.643 Presence of artificial hip joint, bilateral; Z96.651 Presence of right artificial knee joint; Z95.0 Presence of cardiac pacemaker; Z79.82 Long term (current) use of aspirin; Z79.899 Other long term (current) drug therapy; Z88.1 Allergy status to other antibiotic agents; Z88.2 Allergy status to sulfonamides; Z88.8 Allergy status to other drugs, medicaments and biological substances; M19.90 Unspecified osteoarthritis, unspecified site; G62.9 Polyneuropathy, unspecified

== ENCOUNTER → 2025-07-09 | Outpatient (REF) | payer MEDICARE, OTHER ==
[~2025-07-09] MED LIST changes: +ACET-683 PO; +AMLO1TAB25 PO; +ASPI-551 PO; +ASPI325T57 PO; +ASPI81TA27 PO; +B-CO1TAB14 PO; +B-COTAB10 PO; +CALA180T PO; +CEFD1CAP9 PO; +CEFD300CAP PO; +CENT1TAB PO; +CETI-24 PO; +CETI10TA PO; +D-10TAB3 PO; +DITR5TAB PO; +FISH1000 PO; +FISH1CAP26 PO; +FLUTISP NARES; +FURO20TA2 PO; +GABA-1172 PO; +GABA-284 PO; +HYDR-3490 PO; +HYDR5LIQ2 PO; +LIDO1ADH93 TD; +LIDO5TD TOP; +LOSA-528 PO; +LOSA100T46 PO; +MAGN400T2 PO; +MAGN400T33 PO; +OMEP-173 PO; +OMEP1CAP73 PO; +OXYB-54 PO; +OXYC-517 PO; +POTA-136 PO; +POTA-298 PO; +POTA20PW PO; +SENN-130 PO; +SYST1SOL4 OU; +TRAM50TA2 PO; +TUSSLIQ PO; +VERA120T67 PO; +VERA180C PO; +VITAD1000T PO
[2025-07-09 09:32] LABS: PLATELET COUNT, AUTOMATED 241 10^3/uL (150-450)
[2025-07-09 09:58] LABS: ALT/SGPT 10.0 U/L (7.0-40); AST/SGOT 15.0 U/L (<34); CALCIUM LEVEL 9.4 MG/DL (8.3-10.6); CARBON DIOXIDE LEVEL 27.0 MMOL/L (20-31); CHLORIDE LEVEL 106.0 MMOL/L (98-107); CREATININE FOR GFR 0.89 MG/DL (0.55-1.30); GLOMERULAR FILTRATION RATE 63.1 (>32); MAGNESIUM LEVEL 2.1 MG/DL (1.8-2.4); POTASSIUM SERUM 3.6 MMOL/L (3.5-5.1); SODIUM LEVEL 143.0 MMOL/L (136-145)
[2025-07-09 10:00] LABS: TOTAL 25(OH) VITAMIN D 64.3 NG/ML (20.0-100.0)
== END ==
LOC: SKLAB5 07:00
PROVIDERS: ATTEND Internal Medicine
DX: E83.41 Hypermagnesemia (principal); I10 Essential (primary) hypertension; Z79.899 Other long term (current) drug therapy

== ENCOUNTER → 2025-08-21 | Outpatient (REF) | payer MEDICARE, OTHER ==
[2025-08-21 10:03] LABS: CALCIUM LEVEL 9.2 MG/DL (8.3-10.6); CARBON DIOXIDE LEVEL 30.0 MMOL/L (20-31); CHLORIDE LEVEL 105.0 MMOL/L (98-107); CREATININE FOR GFR 0.87 MG/DL (0.55-1.30); GLOMERULAR FILTRATION RATE 64.4 (>32); MAGNESIUM LEVEL 2.0 MG/DL (1.8-2.4); POTASSIUM SERUM 3.5 MMOL/L (3.5-5.1); SODIUM LEVEL 146.0 MMOL/L (136-145)
== END ==
LOC: SKLAB5 07:00
PROVIDERS: ATTEND Internal Medicine
DX: E83.42 Hypomagnesemia (principal); E87.6 Hypokalemia

== ENCOUNTER → 2025-11-03 | Outpatient (REF) | payer MEDICARE, OTHER ==
[2025-11-03 15:36] LABS: PLATELET COUNT, AUTOMATED 271 10^3/uL (150-450)
[2025-11-03 16:09] LABS: CALCIUM LEVEL 8.9 MG/DL (8.3-10.6); CARBON DIOXIDE LEVEL 29.0 MMOL/L (20-31); CHLORIDE LEVEL 103.0 MMOL/L (98-107); CREATININE FOR GFR 1.07 MG/DL (0.55-1.30); GLOMERULAR FILTRATION RATE 50.3 (>32); POTASSIUM SERUM 3.6 MMOL/L (3.5-5.1); SODIUM LEVEL 142.0 MMOL/L (136-145)
== END ==
LOC: SKLAB5 14:59
PROVIDERS: ATTEND Internal Medicine
DX: R53.83 Other fatigue (principal); I95.9 Hypotension, unspecified